=== PATIENT | female | born 1960 | race Caucasian/White ===

== ENCOUNTER → 2019-04-05 11:25 | Outpatient (BNVA) | payer MEDICARE, MEDICAID, SELFPAY | PROVIDERS: Family Provider Family Medicine; PCP Family Medicine; Visit Provider Internal Medicine Rheumatology | DX: M05.79 Rheumatoid arthritis with rheumatoid factor of multiple sites without organ or systems involvement (principal); Z79.899 Other long term (current) drug therapy; R94.5 Abnormal results of liver function studies; K75.81 Nonalcoholic steatohepatitis (NASH); L85.1 Acquired keratosis [keratoderma] palmaris et plantaris | CPT/HCPCS: 36415; 80061; 82565; 84460; 85025; 85651; 86140; 99213 ==

== ENCOUNTER → 2019-04-05 12:23 | Outpatient (BNVA) | payer MEDICARE, MEDICAID, SELFPAY | PROVIDERS: Family Provider Family Medicine; PCP Family Medicine; Visit Provider Internal Medicine Rheumatology | DX: M05.79 Rheumatoid arthritis with rheumatoid factor of multiple sites without organ or systems involvement (principal); Z79.899 Other long term (current) drug therapy; R94.5 Abnormal results of liver function studies; K75.81 Nonalcoholic steatohepatitis (NASH); L85.1 Acquired keratosis [keratoderma] palmaris et plantaris | CPT/HCPCS: 85025 ==

== ENCOUNTER → 2019-12-20 09:36 | Outpatient (BNVA) | payer MEDICARE, MEDICAID, SELFPAY | PROVIDERS: Family Provider Family Medicine; PCP Family Medicine; Referring Provider Family Medicine; Visit Provider Specialist | DX: M17.12 Unilateral primary osteoarthritis, left knee (principal); M25.562 Pain in left knee | CPT/HCPCS: 73560; 73565 ==

== ENCOUNTER 2019-12-31 08:00 | Day surgery (SDC) | payer MEDICARE, MEDICAID, SELFPAY ==
[2019-12-31 11:30] VITALS: BMI 32.9
--- NOTE | 2019-12-31 12:09 | ANES.PREANE2 ---
Pre-Anesthetic Assessment Pre-Anesthetic Assessment: Height/Weight: Height 1.65 m Weight 89.811 kg Preop Diagnosis: Severe degenerative osteoarthritis left knee Proposed Procedure: Operation Date: 01/08/20 10:10 Proposed Procedures p Left Total Knee Arthroplasty 44218 M17.12(Left) - Emmy Schafer MD Familial anesthetic complications: None Social: Social History: No alcohol and No tobacco Exam: Pre-Anes Outpt Exam: alert, oriented x 3, clear to auscultation bilaterally and regular rate & rhythm Airway: Cervical ROM: WNL MP: 4 Dentition: False Additional comments: Very poor mouth opening Hepatic: Comments: ALMEIDA GI: GI: GERD Musc/skel: Musc/skel: RA (Does not affect neck) Comments: 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, s/p resection Neuropsych: Neuropsych: Seizure (s/p brain resection) Anesthetic Plan: ASA status: 3 Anesthesia: General and Regional (specify below) Risk of > 500 ml blood loss (7ml/kg in children): No PFSH Anesthesia PFSH: Medical History (Updated 12/20/19 @ 14:56 by Emmy Schafer MD) History of brain tumor Melanoma metastatic to brain Rheumatoid arthritis Surgical History No pertinent past surgical history Family History Other Arthritis Cancer Diabetes Social History Smoking and tobacco status: never smoked Second hand smoke exposure: No Smoking risk assessment/counseling performed?: Yes Alcohol intake: never Adopted: No Marital status: History of recent travel: No Data Anesthesia Cardiac Studies: No Data to Display
[2019-12-31 12:22] LABS: Basophils # 0.1 10^3/uL (0.0-0.1); Basophils % 0.6 %; Eosinophils # 0.1 10^3/uL (0.0-0.8); Eosinophils % 1.1 %; Hematocrit 46.8 % (37.0-47.0); Hemoglobin 15.6 g/dL (11.5-15.3); Lymphocytes # 1.2 10^3/uL (0.8-4.8); Lymphocytes % 14.9 %; Mean Corpuscular HGB Conc 33.3 g/dL (30.0-36.0); Mean Corpuscular Hemoglobin 33.2 pg (28.0-34.0); Mean Corpuscular Volume 99.6 fL (81-99); Mean Platelet Volume 10.7 fL (7.4-10.4); Monocytes # 0.5 10^3/uL (0.2-0.9); Monocytes % 5.9 %; Neutrophils % 77.1 %; Nucleated Red Blood Cells % 0 %; Platelet Count 338 10^3/cmm (130-400); Red Cell Distribution Width 12.2 % (12.1-15.1); White Blood Count 8.3 10^3/uL (4.0-10.0)
[2019-12-31 12:45] LABS: Alanine Aminotransferase 102 U/L (0-33); Albumin Level 4.3 g/dL (3.5-5.2); Alkaline Phosphatase 97 IU/L (35-105); Blood Urea Nitrogen 15 mg/dL (8-23); Calcium 10.2 mg/dL (8.5-10.5); Carbon Dioxide 23 mmol/L (22-29); Chloride 99 mmol/L (98-107); Globulin 3.1 g/dL (1.3-4.6); Glomerular Filtration Rate 73.2 mL/min (90-130); Glucose 387 mg/dL (65-115); Osmolality Calculated 293 mOsm/kg (285-295); Sodium 133 mmol/L (136-145); Total Bilirubin 0.8 mg/dL (0.15-1.2); Total Protein 7.4 g/dL (6.6-8.7)
[2019-12-31 12:50] LABS: Anion Gap 15.6 (5-19); Aspartate Amino Transferase 118 U/L (0-32); Potassium 4.6 mmol/L (3.5-5.1)
[2019-12-31 12:57] LABS: Glucose Urine UA 4+ (Normal); Ketones Urine 1+ (Negative); Protein Urine Neg (Negative); Specific Gravity, Urine 1.015 (1.005-1.030); Urine Appearance SL Hazy (CLEAR); Urine Color Yellow (Yellow); pH Urine 5 (5-7)
[2019-12-31 12:58] LABS: Add Urine Microscopic? YES; Bilirubin Urine Neg (Negative); Blood Urine Neg (Negative); Leukocyte Esterase Urine Trace (Negative); Nitrate Urine Positive (Negative); Urobilinogen Urine 1 mg/dL (Negative)
[2019-12-31 13:07] LABS: RBC Urine 0-4 /hpf (0-2); Squamous Epithelial Cell Urine 0-4 /hpf (0-5); WBC Urine 15-25 /hpf (0-5)
[2019-12-31 13:08] LABS: Add Urine Culture? Yes; Bacteria Urine 3+ /hpf; Mucus Urine TRACE /hpf
== END 2019-12-31 13:00 | disposition home or self-care (01) ==
LOC: OPS 10-28 10:59
PROVIDERS: PCP Family Medicine; Visit Provider Specialist
DX: Z01.818 Encounter for other preprocedural examination (principal); M17.12 Unilateral primary osteoarthritis, left knee; K21.9 Gastro-esophageal reflux disease without esophagitis; M06.9 Rheumatoid arthritis, unspecified
CPT/HCPCS: 80053; 81001; 85025; 87077; 87086; 87186; 87641; J1100; J2250; J2405; J2704; J2710; J3010; J3490

== ENCOUNTER → 2020-01-03 10:37 | Outpatient (BNVA) | payer MEDICARE, MEDICAID, SELFPAY | PROVIDERS: PCP Family Medicine; Visit Provider Specialist | DX: Z11.59 Encounter for screening for other viral diseases (principal); M17.12 Unilateral primary osteoarthritis, left knee | CPT/HCPCS: 87635 ==

== ENCOUNTER → 2020-05-27 13:31 | Outpatient (BNVA) | payer MEDICARE, MEDICAID, SELFPAY | PROVIDERS: PCP Family Medicine; Visit Provider Internal Medicine Rheumatology | DX: M05.79 Rheumatoid arthritis with rheumatoid factor of multiple sites without organ or systems involvement (principal); K75.81 Nonalcoholic steatohepatitis (NASH); Z79.899 Other long term (current) drug therapy; Z85.820 Personal history of malignant melanoma of skin | CPT/HCPCS: 99214 ==

== ENCOUNTER 2020-05-27 14:45 | Outpatient (CLI) | payer MEDICARE, MEDICAID, SELFPAY ==
--- NOTE | 2020-05-27 15:04 | XRR_ITS ---
PROCEDURE INFORMATION: Exam: XR Chest Exam date and time: 05/27/2020 3:04 PM Age: 60 years old Clinical indication: Screening exam; Other screening; Patient HX: Pre medication cxr; Additional info: R09.89 - other specified symptoms and signs involving the circulatory and respiratory systems TECHNIQUE: Imaging protocol: XR of the chest Views: 2 views. COMPARISON: CR Chest 2 views* [id number] 03/24/2018 1:22 PM FINDINGS: Lungs: Unremarkable. No consolidation. Pleural spaces: No pleural effusion. No pneumothorax. Heart/Mediastinum: No interval change, prominent epicardial fat pad. No cardiomegaly. Bones/joints: No acute findings. XR/XR chest 2V* [id number] IMPRESSION: No acute findings.
== END 2020-05-27 14:46 | disposition home or self-care (01) ==
PROVIDERS: PCP Family Medicine; Visit Provider Internal Medicine Rheumatology
DX: R09.89 Other specified symptoms and signs involving the circulatory and respiratory systems (principal)
CPT/HCPCS: 71046

== ENCOUNTER → 2021-02-10 09:17 | Outpatient (BNVA) | payer MEDICARE, MEDICAID, SELFPAY | PROVIDERS: PCP Family Medicine; Visit Provider Podiatrist Foot & Ankle Surgery | DX: L97.512 Non-pressure chronic ulcer of other part of right foot with fat layer exposed (principal); L98.8 Other specified disorders of the skin and subcutaneous tissue; M05.79 Rheumatoid arthritis with rheumatoid factor of multiple sites without organ or systems involvement; M21.611 Bunion of right foot; M21.612 Bunion of left foot; M20.41 Other hammer toe(s) (acquired), right foot; L97.513 Non-pressure chronic ulcer of other part of right foot with necrosis of muscle; M77.42 Metatarsalgia, left foot; M77.41 Metatarsalgia, right foot; M21.622 Bunionette of left foot; M21.621 Bunionette of right foot; M20.42 Other hammer toe(s) (acquired), left foot | CPT/HCPCS: 73630; 87070; 87075; 87077; 87186; 87205 ==

== ENCOUNTER → 2021-06-17 14:59 | Outpatient (BNVA) | payer MEDICARE, MEDICAID, SELFPAY | PROVIDERS: PCP Family Medicine; Visit Provider Podiatrist Foot & Ankle Surgery | DX: M05.79 Rheumatoid arthritis with rheumatoid factor of multiple sites without organ or systems involvement (principal); Z79.899 Other long term (current) drug therapy; G62.9 Polyneuropathy, unspecified; M77.42 Metatarsalgia, left foot; M77.41 Metatarsalgia, right foot; M21.622 Bunionette of left foot; M21.621 Bunionette of right foot; M20.42 Other hammer toe(s) (acquired), left foot; M20.41 Other hammer toe(s) (acquired), right foot; M21.612 Bunion of left foot; M21.611 Bunion of right foot | CPT/HCPCS: 80076; 82565; 85025; 86140; 99213; 99214 ==

== ENCOUNTER → 2021-07-15 14:16 | Outpatient (BNVA) | payer MEDICARE, MEDICAID, SELFPAY | PROVIDERS: PCP Family Medicine; Visit Provider Internal Medicine Rheumatology | DX: M05.79 Rheumatoid arthritis with rheumatoid factor of multiple sites without organ or systems involvement (principal); Z79.899 Other long term (current) drug therapy; K75.81 Nonalcoholic steatohepatitis (NASH); Z85.820 Personal history of malignant melanoma of skin; Z71.89 Other specified counseling | CPT/HCPCS: 99214 ==

== ENCOUNTER → 2021-08-12 12:36 | Outpatient (BNVA) | payer MEDICARE, MEDICAID, SELFPAY | PROVIDERS: PCP Family Medicine; Visit Provider Podiatrist Foot & Ankle Surgery | DX: M79.671 Pain in right foot (principal); M79.672 Pain in left foot; M05.79 Rheumatoid arthritis with rheumatoid factor of multiple sites without organ or systems involvement; M21.611 Bunion of right foot; M21.612 Bunion of left foot; M20.41 Other hammer toe(s) (acquired), right foot; M20.42 Other hammer toe(s) (acquired), left foot; M21.621 Bunionette of right foot; M21.622 Bunionette of left foot; M77.41 Metatarsalgia, right foot; M77.42 Metatarsalgia, left foot; G62.9 Polyneuropathy, unspecified | CPT/HCPCS: 99213; 99214 ==

== ENCOUNTER → 2021-09-23 10:10 | Outpatient (BNVA) | payer MEDICARE, MEDICAID, SELFPAY | PROVIDERS: PCP Family Medicine; Visit Provider Podiatrist Foot & Ankle Surgery | DX: M05.79 Rheumatoid arthritis with rheumatoid factor of multiple sites without organ or systems involvement (principal); M20.41 Other hammer toe(s) (acquired), right foot; M20.42 Other hammer toe(s) (acquired), left foot; M21.611 Bunion of right foot; M21.612 Bunion of left foot; M21.621 Bunionette of right foot; M21.622 Bunionette of left foot; M77.41 Metatarsalgia, right foot; M77.42 Metatarsalgia, left foot; M79.672 Pain in left foot; M79.671 Pain in right foot; G62.9 Polyneuropathy, unspecified | CPT/HCPCS: 99214 ==

== ENCOUNTER → 2021-12-23 10:07 | Outpatient (BNVA) | payer MEDICARE, MEDICAID, SELFPAY | PROVIDERS: PCP Family Medicine; Visit Provider Podiatrist Foot & Ankle Surgery | DX: M05.79 Rheumatoid arthritis with rheumatoid factor of multiple sites without organ or systems involvement (principal); M21.611 Bunion of right foot; M21.612 Bunion of left foot; M20.41 Other hammer toe(s) (acquired), right foot; M20.42 Other hammer toe(s) (acquired), left foot; M21.621 Bunionette of right foot; M21.622 Bunionette of left foot; M77.41 Metatarsalgia, right foot; M77.42 Metatarsalgia, left foot; G62.9 Polyneuropathy, unspecified | CPT/HCPCS: 99213 ==

== ENCOUNTER → 2022-01-13 13:49 | Outpatient (BNVA) | payer MEDICARE, MEDICAID, SELFPAY | PROVIDERS: PCP Family Medicine; Visit Provider Internal Medicine Rheumatology | DX: M05.79 Rheumatoid arthritis with rheumatoid factor of multiple sites without organ or systems involvement (principal); Z79.899 Other long term (current) drug therapy; Z71.89 Other specified counseling; K75.81 Nonalcoholic steatohepatitis (NASH); Z85.820 Personal history of malignant melanoma of skin; Z85.841 Personal history of malignant neoplasm of brain; Z92.3 Personal history of irradiation | CPT/HCPCS: 80076; 82565; 85025; 86140; 99214 ==

== ENCOUNTER → 2022-03-03 15:01 | Outpatient (BNVA) | payer MEDICARE, MEDICAID, SELFPAY | PROVIDERS: PCP Family Medicine; Visit Provider Podiatrist Foot & Ankle Surgery | DX: M05.59 Rheumatoid polyneuropathy with rheumatoid arthritis of multiple sites (principal); L84 Corns and callosities; L97.512 Non-pressure chronic ulcer of other part of right foot with fat layer exposed; M21.611 Bunion of right foot; M21.612 Bunion of left foot; M20.41 Other hammer toe(s) (acquired), right foot; M20.42 Other hammer toe(s) (acquired), left foot; M21.621 Bunionette of right foot; M21.622 Bunionette of left foot; M77.41 Metatarsalgia, right foot; M77.42 Metatarsalgia, left foot; M79.671 Pain in right foot; M79.672 Pain in left foot | CPT/HCPCS: 11042; 11056 ==

== ENCOUNTER → 2022-04-28 11:11 | Outpatient (BNVA) | payer MEDICARE, MEDICAID, SELFPAY | PROVIDERS: PCP Family Medicine; Visit Provider Podiatrist Foot & Ankle Surgery | DX: M05.79 Rheumatoid arthritis with rheumatoid factor of multiple sites without organ or systems involvement (principal); M21.611 Bunion of right foot; M21.612 Bunion of left foot; M20.41 Other hammer toe(s) (acquired), right foot; M20.42 Other hammer toe(s) (acquired), left foot; M21.621 Bunionette of right foot; M21.622 Bunionette of left foot; M77.41 Metatarsalgia, right foot; M77.42 Metatarsalgia, left foot; G62.9 Polyneuropathy, unspecified | CPT/HCPCS: 99213 ==

== ENCOUNTER → 2022-05-19 13:00 | Outpatient (BNVA) | payer MEDICARE, MEDICAID, SELFPAY | PROVIDERS: PCP Family Medicine; Visit Provider Internal Medicine Rheumatology | DX: M05.79 Rheumatoid arthritis with rheumatoid factor of multiple sites without organ or systems involvement (principal); Z79.899 Other long term (current) drug therapy; Z71.89 Other specified counseling | CPT/HCPCS: 36415; 80076; 82565; 85025; 86140; 99214 ==

== ENCOUNTER → 2022-06-09 11:14 | Outpatient (BNVA) | payer MEDICARE, MEDICAID, SELFPAY | PROVIDERS: PCP Family Medicine; Visit Provider Podiatrist Foot & Ankle Surgery | DX: M05.79 Rheumatoid arthritis with rheumatoid factor of multiple sites without organ or systems involvement (principal); M21.611 Bunion of right foot; M21.612 Bunion of left foot; M20.41 Other hammer toe(s) (acquired), right foot; M20.42 Other hammer toe(s) (acquired), left foot; M21.621 Bunionette of right foot; M21.622 Bunionette of left foot; M77.41 Metatarsalgia, right foot; M77.42 Metatarsalgia, left foot; G62.9 Polyneuropathy, unspecified | CPT/HCPCS: 99213 ==

== ENCOUNTER → 2022-07-07 11:29 | Outpatient (BNVA) | payer MEDICARE, MEDICAID, SELFPAY | PROVIDERS: PCP Family Medicine; Visit Provider Podiatrist Foot & Ankle Surgery | DX: I73.9 Peripheral vascular disease, unspecified (principal); M21.611 Bunion of right foot; M21.612 Bunion of left foot; M20.41 Other hammer toe(s) (acquired), right foot; M20.42 Other hammer toe(s) (acquired), left foot; M21.621 Bunionette of right foot; M21.622 Bunionette of left foot; M77.41 Metatarsalgia, right foot; M77.42 Metatarsalgia, left foot; G62.9 Polyneuropathy, unspecified; L60.3 Nail dystrophy; L84 Corns and callosities; Z79.899 Other long term (current) drug therapy; M05.79 Rheumatoid arthritis with rheumatoid factor of multiple sites without organ or systems involvement | CPT/HCPCS: 11056; 11721 ==

== ENCOUNTER → 2022-08-12 11:33 | Outpatient (BNVA) | payer MEDICARE, MEDICAID, SELFPAY | PROVIDERS: PCP Family Medicine; Visit Provider Podiatrist Foot & Ankle Surgery | DX: I73.9 Peripheral vascular disease, unspecified (principal); L84 Corns and callosities; L97.512 Non-pressure chronic ulcer of other part of right foot with fat layer exposed; Z79.899 Other long term (current) drug therapy; G62.9 Polyneuropathy, unspecified; M77.42 Metatarsalgia, left foot; M77.41 Metatarsalgia, right foot; M21.622 Bunionette of left foot; M21.621 Bunionette of right foot; M20.42 Other hammer toe(s) (acquired), left foot; M20.41 Other hammer toe(s) (acquired), right foot; M21.612 Bunion of left foot; M21.611 Bunion of right foot; M05.79 Rheumatoid arthritis with rheumatoid factor of multiple sites without organ or systems involvement | CPT/HCPCS: 11042; 11056 ==

== ENCOUNTER → 2022-09-16 11:15 | Outpatient (BNVA) | payer MEDICARE, MEDICAID, SELFPAY | PROVIDERS: PCP Family Medicine; Visit Provider Podiatrist Foot & Ankle Surgery | DX: I73.9 Peripheral vascular disease, unspecified (principal); L84 Corns and callosities; M05.79 Rheumatoid arthritis with rheumatoid factor of multiple sites without organ or systems involvement; M21.611 Bunion of right foot; M21.612 Bunion of left foot; M20.41 Other hammer toe(s) (acquired), right foot; M20.42 Other hammer toe(s) (acquired), left foot; M21.621 Bunionette of right foot; M21.622 Bunionette of left foot; M77.41 Metatarsalgia, right foot; M77.42 Metatarsalgia, left foot; G62.9 Polyneuropathy, unspecified; Z79.899 Other long term (current) drug therapy | CPT/HCPCS: 11056; 99213 ==

== ENCOUNTER → 2022-11-04 07:21 | Outpatient (BNVA) | payer MEDICARE, MEDICAID, SELFPAY | PROVIDERS: PCP Family Medicine; Visit Provider Podiatrist Foot & Ankle Surgery | DX: M05.79 Rheumatoid arthritis with rheumatoid factor of multiple sites without organ or systems involvement (principal); M21.611 Bunion of right foot; M21.612 Bunion of left foot; M20.41 Other hammer toe(s) (acquired), right foot; M20.42 Other hammer toe(s) (acquired), left foot; M21.621 Bunionette of right foot; M21.622 Bunionette of left foot; M77.41 Metatarsalgia, right foot; M77.42 Metatarsalgia, left foot; G62.9 Polyneuropathy, unspecified; L84 Corns and callosities; Z79.899 Other long term (current) drug therapy; I73.9 Peripheral vascular disease, unspecified | CPT/HCPCS: 11056; 99213 ==

== ENCOUNTER → 2022-12-29 14:59 | Outpatient (BNVA) | payer MEDICARE, MEDICAID, SELFPAY | PROVIDERS: PCP Family Medicine; Visit Provider Podiatrist Foot & Ankle Surgery | DX: M05.79 Rheumatoid arthritis with rheumatoid factor of multiple sites without organ or systems involvement (principal); M21.611 Bunion of right foot; M21.612 Bunion of left foot; M20.41 Other hammer toe(s) (acquired), right foot; M20.42 Other hammer toe(s) (acquired), left foot; M21.621 Bunionette of right foot; M21.622 Bunionette of left foot; M77.41 Metatarsalgia, right foot; M77.42 Metatarsalgia, left foot; L84 Corns and callosities; Z79.899 Other long term (current) drug therapy; I73.9 Peripheral vascular disease, unspecified; G62.89 Other specified polyneuropathies | CPT/HCPCS: 11056 ==

== ENCOUNTER → 2023-03-02 10:50 | Outpatient (BNVA) | payer MEDICARE, MEDICAID, SELFPAY | PROVIDERS: PCP Family Medicine; Visit Provider Podiatrist Foot & Ankle Surgery | DX: M05.79 Rheumatoid arthritis with rheumatoid factor of multiple sites without organ or systems involvement (principal); M21.611 Bunion of right foot; M21.612 Bunion of left foot; M20.41 Other hammer toe(s) (acquired), right foot; M20.42 Other hammer toe(s) (acquired), left foot; M21.621 Bunionette of right foot; M21.622 Bunionette of left foot; M77.41 Metatarsalgia, right foot; M77.42 Metatarsalgia, left foot; G62.9 Polyneuropathy, unspecified; L84 Corns and callosities; Z79.899 Other long term (current) drug therapy; I73.9 Peripheral vascular disease, unspecified | CPT/HCPCS: 11056 ==

== ENCOUNTER → 2023-03-09 10:08 | Outpatient (BNVA) | payer MEDICARE, MEDICAID, SELFPAY | PROVIDERS: PCP Family Medicine; Visit Provider Internal Medicine Rheumatology | DX: Z79.899 Other long term (current) drug therapy (principal); M05.79 Rheumatoid arthritis with rheumatoid factor of multiple sites without organ or systems involvement; Z11.1 Encounter for screening for respiratory tuberculosis; Z71.89 Other specified counseling | CPT/HCPCS: 36415; 80076; 82565; 85025; 86140; 86480; 99214 ==

== ENCOUNTER 2023-03-26 11:50 | Inpatient (IN) | payer MEDICARE, MEDICAID, SELFPAY ==
[2023-03-26] VITALS (44 sets, daily range): BP systolic 98–179; BP diastolic 59–111; PULSE 61–86; RESP 13–23; TEMP 37–38.2; O2SAT 88–98; BMI 25.6
--- NOTE | 2023-03-26 12:17 | CTR_ITS ---
PROCEDURE INFORMATION: Exam: CT Head Without Contrast Exam date and time: 03/26/2023 1:16 PM Age: 63 years old Clinical indication: Altered mental status/memory loss; Prior surgery; Surgery date: 6+ months; Surgery type: Brain; Additional info: Ams/fall TECHNIQUE: Imaging protocol: Computed tomography of the head without contrast. Radiation optimization: All CT scans at this facility use at least one of these dose optimization techniques: automated exposure control; mA and/or kV adjustment per patient size (includes targeted exams where dose is matched to clinical indication); or iterative reconstruction. COMPARISON: CT head wo/w con [id number] 10/21/2012 6:47 PM RADIATION DOSE METRICS: Total DLP (mGy-cm): 844.48 FINDINGS: Brain: A 5 mm x 2 mm focus of high density in the right skip was not present previously. This may be benign calcification that has developed in the interval due to an old injury or inflammation/infection. However, this could be a focus of acute or subacute hemorrhage. No other findings suspicious for intracranial hemorrhage. No mass effect or acute infarct. Unchanged moderate, diffuse atrophy of the brain.There is ill-defined, fairly symmetric low-density within the cerebral deep white matter bilaterally which is likely the sequela of chronic ischemic change due to small vessel disease. Unchanged. Otherwise, unremarkable. Cerebral ventricles: No ventriculomegaly. Paranasal sinuses: New mild left maxillary sinusitis. Otherwise, unremarkable. Mastoid air cells: New bilateral mastoiditis. Clear middle ear cavities Bones/joints: Unchanged left posterior craniectomy. Innumerable new small lytic lesions scattered throughout the bones. This could be metastatic disease. This could be a myelodysplastic disorder such as multiple myeloma. This could be due to a metabolic disorder involving serum calcium and/or phosphate levels. Soft tissues: Otherwise, unremarkable. CT/CT head wo con* [id number] IMPRESSION: 1. New 5 mm x 2 mm high density focus in the right skip could be an acute or subacute hemorrhage, or could be benign calcification due to old trauma or inflammation/infection. 2. No other acute intracranial findings. 3. Unchanged moderate atrophy of the brain with chronic ischemic changes bilaterally. 4. Multiple new lytic lesions throughout the bones could be metastatic disease, a myelodysplastic disorder such as multiple myeloma, or due to a metabolic disorder affecting serum calcium and/or phosphate levels. 5. Additional details as above.
--- NOTE | 2023-03-26 12:18 | ECG_ITS ---
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 Measurements Intervals [place] Rate: 91 P: 37 WV: 141 QRS: -68 QRSD: 73 T: 52 QT: 355 QTc: 437 Interpretive Statements SINUS RHYTHM LEFT AXIS DEVIATION [QRS AXIS < -30] PATTERN CONSISTENT WITH PULMONARY DISEASE POSSIBLE RIGHT VENTRICULAR CONDUCTION DELAY [RSR (QR) IN V1/V2] SEPTAL MYOCARDIAL INFARCTION , OF INDETERMINATE AGE [40+ ms Q WAVE IN V1/V2] Compared to ECG 08/26/2015 04:42:01 Left-axis deviation now present Myocardial infarct finding now present T-wave abnormality no longer present Possible ischemia no longer present Electronically Signed On 03-27-2023 8:28:14 ADJUNCT TEACHER by Salvatore Saenz M.D. [id number]
--- NOTE | 2023-03-26 12:27 | ED_ITS ---
HPI - Altered Mental Status 2 General: Chief Complaint: Altered Mental Status Stated Complaint: AMS Time Seen by Provider: 03/26/23 12:02 History of Present Illness: 63-year-old female presents to the emerg ency department via EMS personnel. Patient lives by herself and is accompanied by her daughter. The daughter states she was last known well approximately 4 days ago. The daughter states that she attempted to call her yesterday but did not receive a return call and that is not out of the ordinary for the patient. Daughter states the neighbor went to check on her today and found her sitting in a chair but was acting confused and there was an overturned table and lamp. The patient does smell malodorous and smells of very strong urine. Per the daughter the patient does have a history of urinary tract infections and had previously been confused when she had urinary tract infections. The daughter states the patient also had a brain mass that received radiation therapy and had a craniotomy with poor bone fusion post surgical intervention and has a soft spot to the right occipital region. The family states that they do not believe that she has fallen, but did note that there was an overturned table and lamp in the area where the pt was found sitting. She does have a history of seizure activity after having a brain mass removed and is currently prescribed Keppra, but it is unsure if she has taken it as scheduled over the pervious 4 days. She also has a history of rheumatoid arthritis. The patient does appear to be very confused but is awake and alert to person only Review of Systems 2 General: Reports: ROS unobtainable due to medical condition and ROS unobtainable due to mental status PFS ED 2 PFSH: Medical History High risk medication use Immunization counseling Melanoma metastatic to brain History of brain tumor Rheumatoid arthritis Surgical History No pertinent past surgical history Family History Other Arthritis Cancer Diabetes Social History Smoking and tobacco/nicotine status: never used tobacco/nicotine Second hand smoke exposure: No Alcohol intake: never Substance/Drug Use: never Adopted: No Marital status: Physical Exam 2 Narrative: Constitutional: the patient appears well nourished and with normal development. Vital signs reviewed as documented. GCS 10. Confused. HENMT: area to the right occipital region that is soft to palpation due to previous failure of a bone flap reimplantation, atraumatic. External ears normal appearance without drainage. Nose without drainage, normal appearance. Mucus membranes moist. Neck is supple, No jugular venous distension, trachea is midline, no appreciable carotid bruits. No lymphadenopathy. No meningeal signs. Flexion, extension and lateral rotation is without pain. Eyes: Pupils are equal, round, reactive to light and accommodation. No scleral icterus. Extra-ocular movement are intact. Thorax is symmetrical and with equal rise and fall with respirations. Resp: Lungs are clear to auscultation. No wheezes, rales, crackles or ronchi at present. Cardio: Regular rate and rhythm. Positive S1, S2. No appreciable murmurs, rubs or gallops. GI: Abdominal exam reveals normal bowel sounds to all quadrants. No organomegaly. No obvious palpable masses noted. No hepatomegally appreciated. Soft, non-tender to palpation. Extremity: Extremities are non-edematous and both femoral and pedal pulses are 2+ and equal bilaterally. Moves all extremities well, sensation in all extremities. Bilateral ulnar deviation and contraction to the hand secondary to longstanding rheumatoid arthritis. Neuro: Alert and oriented x 1, person. Decerebrate posturing noted, this maybe underlying seizure activity. I am unable to perform a NIH scale as the patient is unable to respond or follow commands. Motor strength in the upper and lower extremities are equal and bilateral 5/5. Confused mental status. Psych: Cooperative, calm. Skin: No lesions, rashes. No gross abnormalities noted. Back: Symmetrical, no obvious deformity, No CVA tenderness Course 2 ED course: Charlie Coma Scale/Score (GCS) on 03/26/2023 RESULT SUMMARY: 10 points Charlie Coma Score E(3) V(3) M(4) Holderness Coma Scale INPUTS: Best eye response ?> 3 = To verbal command (+3) Best verbal response ?> 3 = Inappropriate words (+3) Best motor response ?> 4 = Withdrawal from pain (+4) I had an extensive discussion with the daughter Sunita and the patient's granddaughter Polly and described the patient's condition as well as her CT scan findings and they conveyed to me that the patient would not want life- saving surgical intervention for any new development regarding intracranial bleeding. They requested that the patient would want to be made a DO NOT RESUSCITATE and I will honor that and have placed that order on her chart. I did advise that we would continue to treat the patient's urinary tract infection and would contact the hospital physician for possible admission here to this hospital. I spoke with Dr. Bedolla and at present he has denied admission to the hospital and requested transfer stating that we would not be able to get an EEG if the patient is having underlying seizure activity. 14: 30 PM we have contacted [facility] and have been advised that they would return our call. We are currently awaiting return call for acceptance. I also contacted [facility] and did speak with neurology/neurosurgery and after extensive discussion presentation the patient's case was advised that the patient would not be a candidate for any type of surgical intervention and that the patient could be treated by the medicine physician. After speaking to the physician at [facility] I did contact Dr. Bedolla again to discuss the recommendations from the physician at [facility] and Dr. Bedolla stated that he would accept the patient here to the hospital in the intensive care unit for additional evaluation treatment and care. I advised the family members of this information and they were very pleased and agreeable and stated that admission and treatment here was their preference. They verbalized understanding that if the patient's symptoms worsened that she may need emergently transferred from the intensive care unit or medical floor to another facility for higher level of care and they verbalized understanding and acceptance of this information. Reevaluation(s): Reevaluation #1: Reevaluation of the patient after completion of her Keppra infusion demonstrates an approved mentation. She is no longer having shaking or posturing type movements. The hospitalist is at bedside and she is responding appropriately to his questions. Time: 16:00 Vital Signs: Vital signs: Vital Signs Temperature 98.6 F 03/26/23 12:08 Pulse Rate 65 03/26/23 16:30 Respiratory Rate 18 03/26/23 16:30 Blood Pressure 165/91 03/26/23 16:30 Pulse Oximetry 96 03/26/23 16:30 Oxygen Delivery Me thod Room Air 03/26/23 14:19 MDM - Altered Mental Status Medical Decision Making Physical exam completed and documented I will obtain a CT scan given the patient's altered mental status as well as urinalysis CBC CMP PT PTT INR and blood cultures I will provide her IV fluid rehydration. As well as IV antibiotics for her urinary tract infection and I will provide her a loading dose of Keppra as we are unsure if she has been taking her Keppra for her previous seizures post craniotomy. I will contact the hospitalist for admission. Medical Records I reviewed the patient's medical records. Lab Data I reviewed the patient's lab results. 03/26/23 12:44 03/26/23 12:[address] 03/26/23 12:17 IMPRESSION: 1. New 5 mm x 2 mm high density focus in the right skip could be an acute or subacute hemorrhage, or could be benign calcification due to old trauma or inflammation/infection. 2. No other acute intracranial findings. 3. Unchanged moderate atrophy of the brain with chronic ischemic changes bilaterally. 4. Multiple new lytic lesions throughout the bones could be metastatic disease, a myelodysplastic disorder such as multiple myeloma, or due to a metabolic disorder affecting serum calcium and/or phosphate levels. 5. Additional details as above. ADDENDUM: 03/26/23 1356 ADDENDUM: THIS REPORT CONTAINS FINDINGS THAT MAY BE CRITICAL TO PATIENT CARE. The findings were verbally communicated via telephone conference with ENOC KIM at 1:54 PM PELLET MACHINE OPERATOR on 03/26/2023. The findings were acknowledged and understood. Laboratory Results WBC 9.15 10^3/uL (3.29-11.43) 03/26/23 12:44 RBC 4.63 10^6/uL (3.85-5.65) 03/26/23 12:44 Hgb 15.10 g/dL (11.27-16.99) 03/26/23 12:44 Hct 43.9 % (36-47) 03/26/23 12:44 MCV 94.8 fl (85-98) 03/26/23 12:44 MCH 32.6 pg (27-33) 03/26/23 12:44 MCHC 34.4 g/dL (30-55) 03/26/23 12:44 RDW 11.9 % (12.1-15.1) L 03/26/23 12:44 Plt Count 237 10^3/cmm (157-399) 03/26/23 12:44 MPV 11.2 fL (7.4-10.4) H 03/26/23 12:44 Neut % (Auto) 76.8 % 03/26/23 12:44 Lymph % (Auto) 16.0 % 03/26/23 12:44 Haines % (Auto) 6.3 % 03/26/23 12:44 Eos % (Auto) 0.0 % 03/26/23 12:44 Baso % (Auto) 0.4 % 03/26/23 12:44 Neut # (Auto) 7.02 10^3/uL (1.8-7.7) 03/26/23 12:44 Lymph # (Auto) 1.5 10^3/uL (0.8-4.8) 03/26/23 12:44 Haines # (Auto) 0.6 10^3/uL (0.2-0.9) 03/26/23 12:44 Eos # (Auto) 0.0 10^3/uL (0.0-0.8) 03/26/23 12:44 Baso # (Auto) 0.0 10^3/uL (0.0-0.1) 03/26/23 12:44 Nucleated RBC % (auto) 0 % 03/26/23 12:44 Nucleated RBCs # 0.0 /100WBC 03/26/23 12:44 Sodium 132 mmol/L (136-145) L 03/26/23 12:44 Potassium 4.8 mmol/L (3.5-5.1) 03/26/23 12:44 Chloride 98 mmol/L (98-107) 03/26/23 12:44 Carbon Dioxide 19 mmol/L (22-29) L 03/26/23 12:44 Anion Gap 19.8 (5-19) H 03/26/23 12:44 BUN 15 mg/dL (8-23) 03/26/23 12:44 Creatinine 0.5 mg/dL (0.5-0.9) 03/26/23 12:44 GFR Calculation 124.2 mL/min (90-130) 03/26/23 12:44 Glucose 263 mg/dL (65-115) H 03/26/23 12:44 Calculated Osmolality 284 mOsm/kg (285-295) L 03/26/23 12:44 Lactic Acid 2.9 mmol/L (0.5-2.2) H 03/26/23 12:44 Calcium 9.3 mg/dL (8.5-10.5) 03/26/23 12:44 Total Bilirubin 1.0 mg/dL (0.15-1.2) 03/26/23 12:44 AST 66 U/L (0-32) H 03/26/23 12:44 ALT 51 U/L (0-33) H 03/26/23 12:44 Alkaline Phosphatase 85 U/L (35-105) 03/26/23 12:44 Troponin T Baseline 16 ng/L (0-10) H 03/26/23 12:44 Troponin T 120 Minute 15.93 ng/L (0-10) H 03/26/23 14:51 Delta Troponin T -0.07 ABS# (0-10) L 03/26/23 14:51 NT-Pro-B Natriuret Pep 566 pg/mL (0-125) H 03/26/23 12:44 Total Protein 6.9 g/dL (6.6-8.7) 03/26/23 12:44 Albumin 4.0 g/dL (3.5-5.2) 03/26/23 12:44 Globulin 2.9 g/dL (1.3-4.6) 03/26/23 12:44 Procalcitonin 0.13 ng/mL (0-0.5) 03/26/23 12:44 Urine Color Yellow (Yellow) 03/26/23 12:58 Urine Appearance Cloudy (CLEAR) A 03/26/23 12:58 Urine pH 7 (5-7) 03/26/23 12:58 Ur Specific [place] 1.015 (1.005-1.030) 03/26/23 12:58 Urine Protein Trace (Negative) 03/26/23 12:58 Urine Glucose (UA) 4+ (Normal) H 03/26/23 12:58 Urine Ketones 1+ (Negative) H 03/26/23 12:58 Urine Blood 2+ (Negative) H 03/26/23 12:58 Urine Nitrate Negative (Negative) 03/26/23 12:58 Urine Bilirubin Neg (Negative) 03/26/23 12:58 Urine Urobilinogen 4 mg/dL (Negative) H 03/26/23 12:58 Ur Leukocyte Esterase Trace (Negative) H 03/26/23 12:58 Urine RBC 5-10 /hpf (0-2) H 03/26/23 12:58 Urine WBC 15-25 /hpf (0-5) H 03/26/23 12:58 Ur Squamous Epith Cells 0-4 /hpf (0-5) H 03/26/23 12:58 Amorphous Sediment Not Reportable 03/26/23 12:58 Urine Bacteria 4+ /hpf (NONE) H 03/26/23 12:58 All radiology interpretation(s) finalized by discharge EKG Data EKG 1: Interpretation: Twelve-lead EKG obtained at 1243 and reviewed at 1245 demonstrates sinus rhythm with a ventricular rate of 91 bpm, SD interval 141, QRS duration 73, QT 355 QTc 4 3, there is no ST elevation or depression at present to demonstrate acute ischemia or infarction. EKG 2: Interpretation: Twelve-lead EKG obtained at 1426 and reviewed at 1427 demonstrates sinus rhythm with a ventricular rate of 70 bpm, SD interval 131, QRS duration 80, QT 355, QTc 377, there is no ST elevation or depression to demonstrate acute ischemia or infarction at present. Critical Care Time 2 Critical Care Time: Critical Care Time: Yes Total Critical Care Time: 70 Attestation: The patients was emergently evaluated as this patient's presentation and case had a high probability of a clinically significant, sudden, or life threatening deterioration of this patient's initial critical presentation or condition which required my full and direct attention, intervention and personal management. Discharge Plan Discharge Patient Disposition: Xfer Short-Term Hosp Clinical Impression: Cerebrovascular accident of right pontine structure, Acute alteration in mental status, Urinary tract infection, Encephalopathy acute Condition: Stable Coding Level of Care Code ED Fur Clipper for Keke Hinton
[2023-03-26 13:15] LABS: Basophils % 0.4 %; Hematocrit 43.9 % (36-47); Lymphocytes # 1.5 10^3/uL (0.8-4.8); Mean Corpuscular HGB Conc 34.4 g/dL (30-55); Mean Corpuscular Hemoglobin 32.6 pg (27-33); Mean Corpuscular Volume 94.8 fl (85-98); Mean Platelet Volume 11.2 fL (7.4-10.4); Monocytes # 0.6 10^3/uL (0.2-0.9); Monocytes % 6.3 %; Neutrophils # 7.02 10^3/uL (1.8-7.7); Neutrophils % 76.8 %; Nucleated Red Blood Cells % 0 %; Platelet Count 237 10^3/cmm (157-399); Red Blood Count 4.63 10^6/uL (3.85-5.65); Red Cell Distribution Width 11.9 % (12.1-15.1); White Blood Count 9.15 10^3/uL (3.29-11.43)
[2023-03-26 13:23] LABS: Lactic Sepsis W/Reflex 2.9 mmol/L (0.5-2.2)
[2023-03-26 13:24] LABS: Troponin(5th) Baseline 16 ng/L (0-10)
[2023-03-26 13:34] LABS: NT Pro B Type Natriuretic Pept 566 pg/mL (0-125); Procalcitonin 0.13 ng/mL (0-0.5)
[2023-03-26 13:45] LABS: Alanine Aminotransferase 51 U/L (0-33); Alkaline Phosphatase 85 U/L (35-105); Blood Urea Nitrogen 15 mg/dL (8-23); Calcium 9.3 mg/dL (8.5-10.5); Carbon Dioxide 19 mmol/L (22-29); Chloride 98 mmol/L (98-107); Globulin 2.9 g/dL (1.3-4.6); Glomerular Filtration Rate 124.2 mL/min (90-130); Glucose 263 mg/dL (65-115); Osmolality Calculated 284 mOsm/kg (285-295); Sodium 132 mmol/L (136-145); Total Protein 6.9 g/dL (6.6-8.7)
[2023-03-26 13:46] LABS: Anion Gap 19.8 (5-19); Aspartate Amino Transferase 66 U/L (0-32); Potassium 4.8 mmol/L (3.5-5.1)
[2023-03-26 13:47] LABS: Glucose Urine UA 4+ (Normal); Protein Urine Trace (Negative); Specific Gravity, Urine 1.015 (1.005-1.030); Urine Appearance Cloudy (CLEAR); Urine Color Yellow (Yellow); pH Urine 7 (5-7)
[2023-03-26 13:48] LABS: Add Urine Microscopic? YES; Bilirubin Urine Neg (Negative); Blood Urine 2+ (Negative); Ketones Urine 1+ (Negative); Leukocyte Esterase Urine Trace (Negative); Nitrate Urine Negative (Negative); Squamous Epithelial Cell Urine 0-4 /hpf (0-5); Urobilinogen Urine 4 mg/dL (Negative); WBC Urine 15-25 /hpf (0-5)
[2023-03-26 13:49] LABS: Add Urine Culture? Yes; Bacteria Urine 4+ /hpf
[2023-03-26] MEDS: cefTRIAXone 1,000 MG in sodium chloride 0.9% (plus) 50 ML 100 MG IV (13:58)
[2023-03-26] MEDS: sodium chloride 0.9% 1,000 ML 999 ML IV (14:03)
--- NOTE | 2023-03-26 14:18 | ECG_ITS ---
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 Measurements Intervals [place] Rate: 70 P: 53 ME: 131 QRS: -42 QRSD: 80 T: 27 QT: 355 QTc: 385 Interpretive Statements SINUS RHYTHM LEFT AXIS DEVIATION [QRS AXIS < -30] PATTERN CONSISTENT WITH PULMONARY DISEASE MINIMAL ST DEPRESSION [0.025+ mV ST DEPRESSION] Compared to ECG 03/26/2023 12:43:03 ST (T wave) deviation now present Myocardial infarct finding no longer present Electronically Signed On 03-27-2023 8:36:36 WIND ENERGY TECHNICIAN by Salvatore Saenz M.D. [id number]
[2023-03-26] MEDS: levETIRAcetam 1,000 MG/100 ML PREMIX 400 MG IV (14:27)
[2023-03-26 14:39] LABS: Reflex Lactate Order REFLEX LACTIC ORDERD
[2023-03-26 15:38] LABS: Troponin 5 2HR 15.93 ng/L (0-10); Troponin 5 2HR Delta -0.07 ABS# (0-10)
--- NOTE | 2023-03-26 16:39 | P.HP_ITS ---
Providers/Chief Complaint 2 Admitting Physician: Rich Bedolla Primary Care Provider: Donal Laughlin MD Chief Complaint: AMS History of Present Illness 63-year-old lady with history of epilepsy, rheumatoid arthritis, on Keppra, on tofacitinib, was admitted after found to be sitting in her chair by her neighbor. Ta an unknown tablet was found near her chair. She lives alone but has been having difficulty managing recently. Her family have been trying to set up 24-hour care with hospice for her. She has been resistant to the idea of moving to a different place. Her family Honorio spoke with her on Tuesday, her neighbor reportedly came over yesterday and gave her some ice cream and she reportedly was doing okay. Her neighbor checked on her today after she did not return her family's phone call. She has history of metastatic melanoma to the brain, prior craniectomy, poor healing after receiving radiation treatment. In ER found with decorticate posturing, obtunded. She is usually alert, responsive and oriented. CT head in ER with new 5 x 2 mm high density focus in the right skip could be acute or subacute hemorrhage or could be benign calcification due to old trauma or inflammation/infection. Unchanged moderate atrophy of the brain with chronic ischemic changes bilaterally. Multiple new lytic lesions throughout the bones could be metastatic disease, myelodysplastic disorder such as MM or metabolic disorder affecting serum calcium and/or phosphate levels. With patient's overall quality of life, progressive decline in health recently, goals of care, family do not find that any surgical intervention would be reasonable but would be agreeable to medical intervention. Discussed with ER physician to proceed with loading with IV Keppra. Attempt initially started for transfer due due to suspected complex partial seizure/status epilepticus. However, she showed improvement after she received IV Keppra in ER, on reassessment she is no longer posturing, moving all extremities, giving some limited verbal responses. Family understand that there is no neurology or EEG available in the hospital in case of possibility of recurrence of seizure, status epilepticus, with possibility of potentially disabling neurologic injury in case of protracted seizure/inadequately treated seizure, other complications. They would like to proceed with hospitalization here, are okay with additional closer monitoring in ICU in the beginning and postictal state, monitoring for additional seizure clinically, understand there is no EEG, and treating UTI. Family states she also has been having diarrhea for a while. Review of Systems 2 General: Reports: ROS unobtainable due to mental status Medications/Allergies Home Medications Medication Instructions Recorded Confirmed Last Taken Type lisinopril 10 1 tab PO DAILY 03/09/19 03/26/23 Unknown History mg-hydrochlorothiazide 12.5 mg tablet ibuprofen 600 mg tablet 600 mg PO BID PRN Pain 12/31/19 03/26/23 Unknown History prednisone 10 mg tablet See Rx Instructions PO .COMPLEX 01/13/22 03/26/23 Unknown Rx PRN joint pain #30 tabs tofacitinib 11 mg tablet,extended 11 mg PO DAILY #90 tabs 03/09/23 03/26/23 Unknown Rx release 24 hr (Xeljanz XR) levetiracetam 500 mg tablet 500 mg PO BID 03/26/23 03/26/23 Unknown History Allergies Allergy/AdvReac Type Severity Reaction Status Date / Time No Known Allergies Allergy Verified 03/26/23 14:09 PFSH Acute 2 PFSH: Medical History High risk medication use Immunization counseling Melanoma metastatic to brain History of brain tumor Rheumatoid arthritis Surgical History No pertinent past surgical history Family History Other Arthritis Cancer Diabetes Social History Smoking and tobacco/nicotine status: never used tobacco/nicotine Second hand smoke exposure: No Alcohol intake: never Substance/Drug Use: never Adopted: No Marital status: Vitals/I&O/Wt Last Vital Signs Temp 98.6 F 03/26/23 12:08 Pulse 65 03/26/23 16:30 Resp 18 03/26/23 16:30 BP 165/91 03/26/23 16:30 Pulse Ox 96 03/26/23 16:30 O2 Del Method Room Air 03/26/23 14:19 03/26/23 03/26/23 03/26/23 06:59 14:59 22:59 Intake Total 150 / 150 Balance 150 / 150 Physical Exam 2 Const: COMMON NORMALS: patient oriented x3 and alert GENERAL APPEARANCE: c ooperative ORIENTATION/CONSCIOUSNESS: Yes awake HENMT: COMMON NORMALS: oropharynx normal Neck/C-Spine: COMMON NORMALS: no JVD Resp: COMMON NORMALS: normal respiratory effort and clear to auscultation bilaterally AUSCULTATION: clear to auscultation bilaterally Cardio: COMMON NORMALS: no JVD, regular rhythm, S1 normal heart sound present, S2 normal heart sound present and No murmurs present (Cardio) RHYTHM: regular rhythm HEART SOUNDS: S1 normal heart sound present and S2 normal heart sound present GI: COMMON NORMALS: Normal to inspection, nondistended, normoactive bowel sounds present, Soft to palpation and non-tender PALPATION: Yes Soft to palpation Extremity: COMMON NORMALS: no joint enlargement and no pedal edema N ARRATIVE EXTREMITY EXAM: Wind swept and swan neck deformities BL hands. Neuro: COMMON NORMALS: patient oriented x3 and moves all extremities S ENSORIUM/ORIENTATION: Yes alert Skin: COMMON NORMALS: no rashes or lesions noted GENERAL SKIN EXAM: no rashes or lesions noted Urinary Catheter Management: [place]: Cath Placed During This Visit: yes Urinary Catheter Date of Insertion: 03/26/23 Urinary Catheter Time of Insertion: 13:15 Data 03/26/23 12:44 03/26/23 12:44 A&P Assessment and plan (1) Encephalopathy acute: Acute encephalopathy on presentation obtunded, with some decorticate posturing, concern for complex partial seizure, given a dose of Keppra, afterwards appears to be doing better. Postictal, but no longer posturing. Moving all extremities. Appears to give some limited verbal responses. Continue Keppra IV. Family understand that we do not have EEG I have no way to confirm in case of further AMS whether there may be recurrence of complex partial seizures. Additionally focus of hemorrhagic stroke in the skip newly noted on CT, 5 x 2 mm suspected subacute hemorrhage versus benign calcification from old trauma or inflammation/infection. Family would not want find neurosurgical intervention appropriate even if ndicated given patient's overall poor quality of life, continued functional decline. They have been making arrangements for hospice with 24-hour care, although this has been difficult. Patient has been unwilling to consider moving from her home. Continue seizure precautions. Will check magnesium. Phosphorus. Reviewed vitals, CBC, electrolytes. Recheck sodium, hyponatremia is mild. Noted chronic mild transaminitis. Reviewed ER note, discussed with ER physician. She otherwise has no white count, no fever, is immunocompromise, does not appear to have suggestion of [employer] infection, without headache, meningismus. Treat UTI. Reports chronic diarrhea, will recheck C. difficile. (2) Cerebrovascular accident of right pontine structure: Monitor blood pressures, will add hydralazine as needed. Monitor in ICU initially. Avoid antiplatelets, anticoagulants, SCD only for DVT prophylaxis. 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 Hold for now. Treat UTI. Check chest x-ray. (4) Seropositive rheumatoid arthritis of multiple joints: (5) Goals of care, counseling/discussion: Family wants medical treatment for her condition, but no CPR in case of cardiopulmonary arrest, otherwise no major interventions, surgical interventions, etc. fiding dosing compatible with her overall condition, poor quality of life, functional decline, goals. Discussed with her daughter and granddaughter at bedside by ER physician and myself. Plan Metastatic melanoma history: Noted multiple new lytic lesions throughout the bones, could be metastatic, and may suspect from metastatic melanoma. Alternatively could be multiple myeloma. Mentioned differential metabolic disorders, although calcium is normal. Check phosphorus. Severe rheumatoid arthritis: Functionally limiting. Declining quality of life and functional capacity. Not managing things at home. Family working on setting up hospice care with 24-hour care at home. Patient has been unwilling to consider moving from home. Case management consultation. History of craniectomy after complication of brain irradiation of metastatic malignancy. Attestations 2 Medical Necessity Statement*: Admission of over 2 midnights anticipated for assessment management of encephalopathy, and lady with hemorrhagic infarct of the skip, suspected complex partial seizure, postictal state, UTI in setting of immunocompromise with rheumatoid arthritis and treatment. Coding Level of Care Code Critical Care >/= 30 minutes Critical care time (in minutes): 35 The high probability of a clinically significant, sudden or life threatening deterioration, as referenced in this documentation, required my full and direct attention, intervention and personal management. The critical care time shown is in addition to time spent performing any reported separately billable procedures and includes the following: [x] Data and vital sign review and interpretation [x ] Patient assessment, examination and intervention [x] Medication orders and management [x] Patient/Family updates as able [x] Care Coordination and Documentation. Diagnoses Encephalopathy acute G93.40 Cerebrovascular accident of right pontine structure I63.50 Immunodeficiency secondary to chemotherapy Z79.899 Seropositive rheumatoid arthritis of multiple joints M05.79 Goals of care, counseling/discussion Z71.89
--- NOTE | 2023-03-26 17:04 | XRR_ITS ---
PROCEDURE INFORMATION: Exam: XR Chest Exam date and time: 03/26/2023 5:51 PM Age: 63 years old Clinical indication: Other: AMS; Additional info: AMS, immunocompromise TECHNIQUE: Imaging protocol: Radiologic exam of the chest. Views: 1 view. COMPARISON: CR XR chest 2V* [id number] 05/27/2020 3:12 PM FINDINGS: Lungs: Unremarkable. No consolidation. Pleural spaces: Chronic blunting pleural-parenchymal thickening is unchanged studies at least as far back as 03/24/2018. Heart/Mediastinum: Unremarkable. No cardiomegaly. Bones/joints: Unremarkable. XR/XR chest 1V portable [id number] IMPRESSION: No acute plain radiographic abnormality or interval change from prior imaging. Chronic residual pleural-parenchymal scarring in the left costophrenic angle.
[2023-03-26] MEDS: pantoprazole 40 mg SDV IVP (18:14)
[2023-03-26 20:00] LABS: Lactic Acid level (Lactate) 2.9 mmol/L (0.5-2.2)
[2023-03-26 20:01] LABS: Troponin 5 6HR 20.49 ng/L (0-10); Troponin 5 6HR Delta 4.49 ng/L (0-12)
[2023-03-26 23:47] LABS: Adenovirus Not Detected (NOT DETECT); Chlamydia Pneumoniae Not Detected (NOT DETECT); Coronavirus 229E,HKU1,NL63,OC4 Not Detected (NOT DETECT); Human Metapneumovirus Not Detected (NOT DETECT); Human Rhinovirus/Enterovirus Not Detected (NOT DETECT); Influenza A Not Detected (NOT DETECT); Influenza A H1 Not Detected (NOT DETECT); Influenza A H1-2009 Not Detected (NOT DETECT); Influenza A H3 Not Detected (NOT DETECT); Influenza B Not Detected (NOT DETECT); Mycoplasma Pneumoniae Not Detected (NOT DETECT); Parainfluenza Virus Type 1 Not Detected (NOT DETECT); Parainfluenza Virus Type 2 Not Detected (NOT DETECT); Parainfluenza Virus Type 3 Not Detected (NOT DETECT); Parainfluenza Virus Type 4 Not Detected (NOT DETECT); Respiratory Syncytial Virus A Not Detected (NOT DETECT); Respiratory Syncytial Virus B Not Detected (NOT DETECT); SARS-COV-2 Not Detected (NOT DETECT)
[2023-03-27] VITALS (61 sets, daily range): BP systolic 101–156; BP diastolic 42–125; PULSE 56–91; RESP 13–22; TEMP 36.8–38.1; O2SAT 94–99; BMI 25.7
[2023-03-27 01:13] LABS: Glucose Point of Care 327 mg/dL (70-110)
--- NOTE | 2023-03-27 01:26 | PC.NURSE ---
Blood glucose Patient's blood glucose [address] Ford notified; order received to start low dose sliding scale insulin humalog SUBQ WM/HS starting now. See MAR for details.
[2023-03-27] MEDS: insulin lispro 100 unit/1 mL SUBCUT ×5 (01:36→20:32)
[2023-03-27] MEDS: levETIRAcetam 1,000 MG/100 ML PREMIX 400 MG IV ×2 (01:37→14:43)
[2023-03-27 04:51] LABS: Basophils # 0.1 10^3/uL (0.0-0.1); Basophils % 0.5 %; Hematocrit 43.1 % (36-47); Lymphocytes # 2.2 10^3/uL (0.8-4.8); Lymphocytes % 19.8 %; Mean Corpuscular Hemoglobin 32.7 pg (27-33); Mean Corpuscular Volume 93.3 fl (85-98); Mean Platelet Volume 10.2 fL (7.4-10.4); Monocytes # 1.1 10^3/uL (0.2-0.9); Monocytes % 9.6 %; Neutrophils # 7.79 10^3/uL (1.8-7.7); Neutrophils % 69.5 %; Nucleated Red Blood Cells % 0 %; Platelet Count 263 10^3/cmm (157-399); Red Blood Count 4.62 10^6/uL (3.85-5.65); Red Cell Distribution Width 11.9 % (12.1-15.1); White Blood Count 11.22 10^3/uL (3.29-11.43)
[2023-03-27 05:11] LABS: Alanine Aminotransferase 43 U/L (0-33); Albumin Level 3.5 g/dL (3.5-5.2); Alkaline Phosphatase 72 U/L (35-105); Blood Urea Nitrogen 14 mg/dL (8-23); Calcium 8.6 mg/dL (8.5-10.5); Carbon Dioxide 22 mmol/L (22-29); Chloride 100 mmol/L (98-107); Globulin 3.3 g/dL (1.3-4.6); Glomerular Filtration Rate 160.7 mL/min (90-130); Glucose 189 mg/dL (65-115); Magnesium 1.9 mg/dL (1.7-2.3); Osmolality Calculated 282 mOsm/kg (285-295); Phosphorus 1.5 mg/dL (2.5-4.5); Sodium 133 mmol/L (136-145); Total Bilirubin 1.2 mg/dL (0.15-1.2); Total Protein 6.8 g/dL (6.6-8.7)
[2023-03-27 05:12] LABS: Aspartate Amino Transferase 44 U/L (0-32)
[2023-03-27 07:50] LABS: Glucose Point of Care 211 mg/dL (70-110)
[2023-03-27] MEDS: magnesium sulfate premix 1 GM/100 ML PIGGYBACK IV (09:52)
[2023-03-27 12:34] LABS: Glucose Point of Care 180 mg/dL (70-110)
--- NOTE | 2023-03-27 12:55 | PC.NURSE ---
transfer to 2nd [facility]
[2023-03-27] MEDS: cefTRIAXone 1,000 MG in sodium chloride 0.9% (plus) 50 ML 100 MG IV (14:26)
--- NOTE | 2023-03-27 15:12 | PC.NURSE ---
Dr Gr talked with daughter about care and test ordered .. will have conversation at times and other will just smile and no verbal response
[2023-03-27 17:23] LABS: Glucose Point of Care 188 mg/dL (70-110)
[2023-03-27] MEDS: pantoprazole 40 mg SDV IVP (17:30)
[2023-03-27 20:24] LABS: Glucose Point of Care 163 mg/dL (70-110)
--- NOTE | 2023-03-27 20:34 | P.PN_ITS ---
Subjective 2 Subjective: She is much more alert this morning, although unclear that she is cognitively back to self, per discussion with her daughter daughter states that she mostly is agreeable and answers yes to all questions. But otherwise she is alert, interactive and smiling. Seems in good spirits. Denies pain. Vitals/I&O/Wt Last Vital Signs Temp 100.5 F H 03/27/23 12:00 Pulse 56 L 03/27/23 18:00 Resp 13 03/27/23 18:00 BP 120/58 03/27/23 18:00 Pulse Ox 96 03/27/23 18:00 O2 Del Method Room Air 03/27/23 04:00 03/27/23 03/27/23 03/27/23 06:59 14:59 22:59 Intake Total 100 / 1350 350 / 350 150 / 500 Output Total 550 / 850 250 / 250 Balance -450 / 500 100 / 100 150 / 250 Weight last 48 hrs Weight 72.5 kg Weight 72 kg Physical Exam 2 Const: COMMON NORMALS: alert; negative for patient oriented x3 GENERAL APPEARANCE: cooperative O RIENTATION/CONSCIOUSNESS: Yes awake HENMT: COMMON NORMALS: oropharynx normal Neck/C-Spine: COMMON NORMALS: no JVD Resp: COMMON NORMALS: normal respiratory effort and clear to auscultation bilaterally AUSCULTATION: clear to auscultation bilaterally Cardio: COMMON NORMALS: no JVD, regular rhythm, S1 normal heart sound present, S2 normal heart sound present and No murmurs present (Cardio) RHYTHM: regular rhythm HEART SOUNDS: S1 normal heart sound present and S2 normal heart sound present GI: COMMON NORMALS: Normal to inspection, nondistended, normoactive bowel sounds present, Soft to palpation and non-tender PALPATION: Yes Soft to palpation Extremity: COMMON NORMALS: no joint enlargement and no pedal edema N ARRATIVE EXTREMITY EXAM: Wind swept and swan neck deformities BL hands. Neuro: COMMON NORMALS: moves all extremities; negative for patient oriented x3 SENSORIUM/ORIENTATION: Yes alert Skin: COMMON NORMALS: no rashes or lesions noted GENERAL SKIN EXAM: no rashes or lesions noted Urinary Catheter Management: [place]: Cath Placed During This Visit: yes Reason for Continuing Indwelling Catheter: Accurate Measurement of Urinary Output in Critically Ill Patients Urinary Catheter Date of Insertion: 03/26/23 Urinary Catheter Time of Insertion: 13:15 Data 03/27/23 04:33 03/27/23 04:33 Micro: Microbiology 03/26/23 12:58 Urine Culture - Preliminary Urine,Clean Catch Gram Negative Rods A&P Assessment and plan (1) Encephalopathy acute: With partial improvement. She is awake and alert, interactive. In good spirits. However, not back to baseline. Daughter states she is still confused, mostly agreeable with any statements. Unable to provide history. Not oriented. Reviewed vitals, CBC, CMP. Blood culture, urine culture. Monitor for any seizure. Requesting speech therapy assessment. Switch to oral antiepileptic once able to tolerate oral intake. Continue treatment of UTI. Hopefully may improve further with recovery, however, discussed with her daughter may have some permanent deficits given hemorrhagic stroke, additionally with suspected possible metastatic disease as visualized on CT head. Requested transfer out of ICU. Suspected complex partial seizure, postictal after Keppra but no longer posturing. Additionally focus of hemorrhagic stroke in the skip newly noted on CT, 5 x 2 mm suspected subacute hemorrhage versus benign calcification from old trauma or inflammation/infection. Family would not want find neurosurgical intervention appropriate even if ndicated given patient's overall poor quality of life, continued functional decline. They have been making arrangements for hospice with 24-hour care, although this has been difficult. Patient has been unwilling to consider moving from her home. 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 Treat UTI. Reviewed urine culture, noted gram-negative rods growing. Continue ceftriaxone. Reports chronic diarrhea, will recheck C. difficile. Replace hypomagnesemia. Needs replacement of hypophosphatemia. Potassium as high as 4.8. Replace once tolerating oral intake. Monitor on telemetry. At risk of arrhythmia. (2) Cerebrovascular accident of right pontine structure: Monitor blood pressures. Blood pressure doing better, 120/58. Monitor in ICU initially. Avoid antiplatelets, anticoagulants, SCD only for DVT prophylaxis. 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 Hold for now. Treat UTI. Check chest x-ray. (4) Seropositive rheumatoid arthritis of multiple joints: (5) Goals of care, counseling/discussion: Limited goals of care. No aggressive interventions. Continue medical treatment. Case management consultation for hospice arrangements after discharge, possibly at senior care versus at home with 24-hour care. Family wants medical treatment for her condition, but no CPR in case of cardiopulmonary arrest, otherwise no major interventions, surgical interventions, etc. fiding dosing compatible with her overall condition, poor quality of life, functional decline, goals. Plan Metastatic melanoma history: Noted multiple new lytic lesions throughout the bones, could be metastatic, and may suspect from metastatic melanoma. Alternatively could be multiple myeloma. Mentioned differential metabolic disorders, although calcium is normal. Phosphorus is low. Would benefit from replacement once tolerating oral intake as potassium on the higher side. Severe rheumatoid arthritis: Functionally limiting. Declining quality of life and functional capacity. Not managing things at home. Family working on setting up hospice care with 24-hour care at home. Patient has been unwilling to consider moving from home. Case management consultation. History of craniectomy after complication of brain irradiation of metastatic malignancy. Attestations 2 Medical Necessity Statement*: Continue admission for assessment management of encephalopathy, and lady with hemorrhagic infarct of the skip, suspected complex partial seizure, UTI in setting of immunocompromise with rheumatoid arthritis and treatment. Diagnoses Encephalopathy acute G93.40 Cerebrovascular accident of right pontine structure I63.50 Immunodeficiency secondary to chemotherapy Z79.899 Seropositive rheumatoid arthritis of multiple joints M05.79 Goals of care, counseling/discussion Z71.89
[2023-03-28] VITALS (7 sets, daily range): BP systolic 99–127; BP diastolic 63–79; PULSE 62–90; RESP 16–20; TEMP 36.5–37.1; O2SAT 95–97
--- NOTE | 2023-03-28 00:03 | PC.NURSE ---
patient transferred to [facility]
[2023-03-28] MEDS: levETIRAcetam 1,000 MG/100 ML PREMIX 400 MG IV ×2 (01:52→14:13)
[2023-03-28 05:47] LABS: Basophils % 0.5 %; Eosinophils % 0.6 %; Hematocrit 42.3 % (36-47); Lymphocytes # 0.8 10^3/uL (0.8-4.8); Lymphocytes % 12.8 %; Mean Corpuscular Hemoglobin 32.4 pg (27-33); Mean Corpuscular Volume 92.6 fl (85-98); Mean Platelet Volume 10.3 fL (7.4-10.4); Monocytes # 0.5 10^3/uL (0.2-0.9); Monocytes % 7.8 %; Neutrophils # 5.05 10^3/uL (1.8-7.7); Neutrophils % 77.7 %; Nucleated Red Blood Cells % 0 %; Platelet Count 207 10^3/cmm (157-399); Red Blood Count 4.57 10^6/uL (3.85-5.65); Red Cell Distribution Width 11.9 % (12.1-15.1)
[2023-03-28 06:01] LABS: Phosphorus 2.5 mg/dL (2.5-4.5)
[2023-03-28 06:04] LABS: Alanine Aminotransferase 61 U/L (0-33); Albumin Level 3.2 g/dL (3.5-5.2); Alkaline Phosphatase 73 U/L (35-105); Anion Gap 15.5 (5-19); Aspartate Amino Transferase 142 U/L (0-32); Blood Urea Nitrogen 17 mg/dL (8-23); Calcium 8.4 mg/dL (8.5-10.5); Carbon Dioxide 21 mmol/L (22-29); Chloride 102 mmol/L (98-107); Globulin 2.7 g/dL (1.3-4.6); Glomerular Filtration Rate 124.2 mL/min (90-130); Glucose 215 mg/dL (65-115); Magnesium 2.2 mg/dL (1.7-2.3); Osmolality Calculated 288 mOsm/kg (285-295); Potassium 3.5 mmol/L (3.5-5.1); Sodium 135 mmol/L (136-145); Total Bilirubin 1.3 mg/dL (0.15-1.2); Total Protein 5.9 g/dL (6.6-8.7)
[2023-03-28 06:55] LABS: Glucose Point of Care 205 mg/dL (70-110)
[2023-03-28] MEDS: lisinopril 10 mg Tablet 5 MG PO (08:45)
[2023-03-28] MEDS: insulin lispro 100 unit/1 mL SUBCUT ×2 (08:46→13:03)
[2023-03-28 11:45] LABS: Glucose Point of Care 159 mg/dL (70-110)
[2023-03-28] MEDS: cefTRIAXone 1,000 MG in sodium chloride 0.9% (plus) 50 ML 100 MG IV (14:16)
--- NOTE | 2023-03-28 17:06 | P.PN_ITS ---
Subjective 2 Subjective: Hospital course, labs appreciated. Examination patient sitting comfortably in bed with daughters at bedside. Patient is awake and alert to self, being in the hospital, year though she is not sure why she is in the hospital. She is aware of her past medical history. Asking to be discharged as soon as possible. Agreeable to go to SNF as per daughter's request. Vitals/I&O/Wt Last Vital Signs Temp 98.2 F 03/28/23 12:00 Pulse 90 03/28/23 12:00 Resp 18 03/28/23 12:00 BP 117/65 03/28/23 12:00 Pulse Ox 95 03/28/23 12:00 O2 Del Method Room Air 03/28/23 08:00 03/28/23 03/28/23 03/28/23 06:59 14:59 22:59 Intake Total 100 / 620 390 / 390 Output Total 300 / 550 Balance -200 / 70 390 / 390 Weight last 48 hrs Weight 75.892 kg Weight 72.5 kg Physical Exam 2 Const: COMMON NORMALS: alert; negative for patient oriented x3 GENERAL APPEARANCE: cooperative O RIENTATION/CONSCIOUSNESS: Yes awake HENMT: COMMON NORMALS: oropharynx normal Neck/C-Spine: COMMON NORMALS: no JVD Resp: COMMON NORMALS: normal respiratory effort and clear to auscultation bilaterally AUSCULTATION: clear to auscultation bilaterally Cardio: COMMON NORMALS: no JVD, regular rhythm, S1 normal heart sound present, S2 normal heart sound present and No murmurs present (Cardio) RHYTHM: regular rhythm HEART SOUNDS: S1 normal heart sound present and S2 normal heart sound present GI: COMMON NORMALS: Normal to inspection, nondistended, normoactive bowel sounds present, Soft to palpation and non-tender PALPATION: Yes Soft to palpation Extremity: COMMON NORMALS: no joint enlargement and no pedal edema N ARRATIVE EXTREMITY EXAM: Wind swept and swan neck deformities BL hands. Neuro: COMMON NORMALS: moves all extremities; negative for patient oriented x3 SENSORIUM/ORIENTATION: Yes alert Skin: COMMON NORMALS: no rashes or lesions noted GENERAL SKIN EXAM: no rashes or lesions noted Urinary Catheter Management: [place]: Cath Placed During This Visit: yes Reason for Continuing Indwelling Catheter: Accurate Measurement of Urinary Output in Critically Ill Patients Urinary Catheter Date of Insertion: 03/26/23 Urinary Catheter Time of Insertion: 13:15 Data 03/28/23 04:50 03/28/23 04:50 Micro: Microbiology 03/26/23 12:58 Urine Culture - Final Urine,Clean Catch Escherichia coli A&P Assessment and plan (1) Encephalopathy acute: With partial improvement. She is awake and alert, interactive. In good spirits. However, not back to baseline. Daughter states she is still confused, mostly agreeable with any statements. Unable to provide history. Not oriented. Reviewed vitals, CBC, CMP. Blood culture, urine culture. Monitor for any seizure. Requesting speech therapy assessment. Switch to oral antiepileptic once able to tolerate oral intake. Continue treatment of UTI. Hopefully may improve further with recovery, however, discussed with her daughter may have some permanent deficits given hemorrhagic stroke, additionally with suspected possible metastatic disease as visualized on CT head. Requested transfer out of ICU. Suspected complex partial seizure, postictal after Keppra but no longer posturing. Additionally focus of hemorrhagic stroke in the skip newly noted on CT, 5 x 2 mm suspected subacute hemorrhage versus benign calcification from old trauma or inflammation/infection. Family would not want find neurosurgical intervention appropriate even if ndicated given patient's overall poor quality of life, continued functional decline. They have been making arrangements for hospice with 24-hour care, although this has been difficult. Patient has been unwilling to consider moving from her home. Does not appear to have suggestion of PUBLIC WORKS MANAGER infection, without headache, meningismus. Treat UTI. Reviewed urine culture, noted gram-negative rods growing. Continue ceftriaxone. Reports chronic diarrhea, will recheck C. difficile. Replace hypomagnesemia. Needs replacement of hypophosphatemia. Potassium as high as 4.8. Replace once tolerating oral intake. Monitor on telemetry. At risk of arrhythmia. (2) Cerebrovascular accident of right pontine structure: Monitor blood pressures. Blood pressure doing better, 120/58. Monitor in ICU initially. Avoid antiplatelets, anticoagulants, SCD only for DVT prophylaxis. 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 Hold for now. Treat UTI. Check chest x-ray. (4) Seropositive rheumatoid arthritis of multiple joints: (5) Goals of care, counseling/discussion: Limited goals of care. No aggressive interventions. Continue medical treatment. Case management consultation for hospice arrangements after discharge, possibly at long term versus at home with 24-hour care. Family wants medical treatment for her condition, but no CPR in case of cardiopulmonary arrest, otherwise no major interventions, surgical interventions, etc. fiding dosing compatible with her overall condition, poor quality of life, functional decline, goals. (6) Seizure disorder: (7) Urinary tract infection: Qualifiers: Hematuria presence: with hematuria Urinary tract infection type: acute cystitis Qualified Code(s): N30.01 - Acute cystitis with hematuria (8) Brain mass: (9) Skull lesion: Plan Metastatic melanoma history: Noted multiple new lytic lesions throughout the bones, could be metastatic, and may suspect from metastatic melanoma. Alternatively could be multiple myeloma. Mentioned differential metabolic disorders, although calcium is normal. Phosphorus is low. Would benefit from replacement once tolerating oral intake as potassium on the higher side. Severe rheumatoid arthritis: Functionally limiting. Declining quality of life and functional capacity. Not managing things at home. Family working on setting up hospice care with 24-hour care at home. Patient has been unwilling to consider moving from home. Case management consultation. History of craniectomy after complication of brain irradiation of metastatic malignancy. Plan for the day: Appreciate urine culture. For now continue with IV Rocephin. Will plan to switch over to oral Keflex on discharge. Continue with IV Keppra 1000 mg every 12 hourly. Goal blood pressure less than 140/99. Continue with lisinopril. Discussed her CT scan which was done on admission in detail. Discussed new lesion in the brain along with multiple lytic lesions. Discussed there is a high concern for malignancy though primary is not currently known. Discussed further workup should be decided on the further goals and long-term plans. Discussed to plan going forward. Depending on the goals of care. If patient wants to pursue further treatment then we should go for CT chest abdomen pelvis to look for primary with possible needle biopsy and follow-up as an outpatient with oncology versus if goals of care are not to do anything aggressive given her baseline health, quality of life, new lesions in the brain then we should look for possible hospice which would concentrate on keeping patient comfortable. Daughter verbalized understanding and is agreeable. Will discuss further with family and patient before making decision. Daughter otherwise requesting patient to be placed to SNF. Patient is agreeable. Case management alerted. Daughter wants patient to be DNR/DNI. Advance diet as per speech evaluation. PT evaluation. Attestations 2 Medical Necessity Statement*: Requires further hospitalization for management of UTI, metabolic encephalopathy in setting of seizure disorder in a patient with new brain mass, multiple lytic lesion to skull while primary malignancy is sought Diagnoses Encephalopathy acute G93.40 Cerebrovascular accident of right pontine structure I63.50 Immunodeficiency secondary to chemotherapy Z79.899 Seropositive rheumatoid arthritis of multiple joints M05.79 Goals of care, counseling/discussion Z71.89 Seizure disorder G40.909 Urinary tract infection N30.01 Hematuria presence: with hematuria Urinary tract infection type: acute cystitis Brain mass G93.89 Skull lesion M89.9
[2023-03-28] MEDS: pantoprazole 40 mg SDV IVP (18:04)
[2023-03-28 18:33] LABS: Gamma Glutamyl Transferase 94 U/L (5-36); Lactate Dehydrogenase 317 U/L (135-214); Thyroid Stimulating Hormone 2.06 uIU/mL (0.27-4.20); Vitamin B12 491 pg/mL (232-1245)
[2023-03-29] VITALS (9 sets, daily range): BP systolic 95–147; BP diastolic 61–82; PULSE 63–91; RESP 16–18; TEMP 36.6–36.7; O2SAT 94–96
[2023-03-29] MEDS: levETIRAcetam 1,000 MG/100 ML PREMIX 400 MG IV ×2 (02:32→13:43)
[2023-03-29 05:43] LABS: Basophils % 0.4 %; Eosinophils # 0.1 10^3/uL (0.0-0.8); Eosinophils % 0.9 %; Hematocrit 41.2 % (36-47); Mean Corpuscular HGB Conc 34.7 g/dL (30-55); Mean Corpuscular Hemoglobin 32.4 pg (27-33); Mean Corpuscular Volume 93.2 fl (85-98); Mean Platelet Volume 10.4 fL (7.4-10.4); Monocytes # 0.6 10^3/uL (0.2-0.9); Monocytes % 8.5 %; Neutrophils # 5.04 10^3/uL (1.8-7.7); Neutrophils % 74.8 %; Nucleated Red Blood Cells % 0 %; Platelet Count 215 10^3/cmm (157-399); Red Blood Count 4.42 10^6/uL (3.85-5.65); Red Cell Distribution Width 11.9 % (12.1-15.1); White Blood Count 6.74 10^3/uL (3.29-11.43)
[2023-03-29 06:05] LABS: Alanine Aminotransferase 53 U/L (0-33); Albumin Level 3.1 g/dL (3.5-5.2); Alkaline Phosphatase 79 U/L (35-105); Anion Gap 15.2 (5-19); Aspartate Amino Transferase 75 U/L (0-32); Blood Urea Nitrogen 14 mg/dL (8-23); Calcium 8.6 mg/dL (8.5-10.5); Carbon Dioxide 20 mmol/L (22-29); Chloride 102 mmol/L (98-107); Globulin 2.7 g/dL (1.3-4.6); Glomerular Filtration Rate 124.2 mL/min (90-130); Glucose 326 mg/dL (65-115); Magnesium 2.1 mg/dL (1.7-2.3); Osmolality Calculated 291 mOsm/kg (285-295); Potassium 3.2 mmol/L (3.5-5.1); Sodium 134 mmol/L (136-145); Total Bilirubin 0.7 mg/dL (0.15-1.2); Total Protein 5.8 g/dL (6.6-8.7)
[2023-03-29 06:06] LABS: Phosphorus 3.1 mg/dL (2.5-4.5)
[2023-03-29 06:18] LABS: Estmated Average Glucose 289; Hemoglobin A1C 11.7 % (4.0-6.0)
[2023-03-29 06:28] LABS: Folate Level 18.1 ng/mL (4.8-37.3)
[2023-03-29] MEDS: lisinopril 10 mg Tablet 5 MG PO (07:56)
[2023-03-29] MEDS: cefTRIAXone 1,000 MG in sodium chloride 0.9% (plus) 50 ML 100 MG IV (13:44)
--- NOTE | 2023-03-29 15:28 | P.PN_ITS ---
Subjective 2 Subjective: No acute events overnight. Patient remains hemodynamically stable and at baseline mentation. States she was not able to sleep last night because she kept getting disturbed by her neighbor snoring. Otherwise denies new complaints. Seen with daughter at bedside. Vitals/I&O/Wt Last Vital Signs Temp 97.8 F 03/29/23 11:57 Pulse 71 03/29/23 15:26 Resp 16 03/29/23 15:26 BP 147/72 03/29/23 15:26 Pulse Ox 95 03/29/23 15:26 O2 Del Method Room Air 03/29/23 15:26 03/29/23 03/29/23 03/29/23 06:59 14:59 22:59 Intake Total 100 / 970 630 / 630 Output Total 700 / 900 800 / 800 Balance -600 / 70 630 / 630 -800 / -170 Weight last 48 hrs Weight 74.389 kg Weight 75.892 kg Physical Exam 2 Const: COMMON NORMALS: alert; negative for patient oriented x3 GENERAL APPEARANCE: cooperative O RIENTATION/CONSCIOUSNESS: Yes awake HENMT: COMMON NORMALS: oropharynx normal Neck/C-Spine: COMMON NORMALS: no JVD Resp: COMMON NORMALS: normal respiratory effort and clear to auscultation bilaterally AUSCULTATION: clear to auscultation bilaterally Cardio: COMMON NORMALS: no JVD, regular rhythm, S1 normal heart sound present, S2 normal heart sound present and No murmurs present (Cardio) RHYTHM: regular rhythm HEART SOUNDS: S1 normal heart sound present and S2 normal heart sound present GI: COMMON NORMALS: Normal to inspection, nondistended, normoactive bowel sounds present, Soft to palpation and non-tender PALPATION: Yes Soft to palpation Extremity: COMMON NORMALS: no joint enlargement and no pedal edema N ARRATIVE EXTREMITY EXAM: Wind swept and swan neck deformities BL hands. Neuro: COMMON NORMALS: moves all extremities; negative for patient oriented x3 SENSORIUM/ORIENTATION: Yes alert Skin: COMMON NORMALS: no rashes or lesions noted GENERAL SKIN EXAM: no rashes or lesions noted Urinary Catheter Management: [place]: Cath Placed During This Visit: yes Reason for Continuing Indwelling Catheter: Accurate Measurement of Urinary Output in Critically Ill Patients Urinary Catheter Date of Insertion: 03/26/23 Urinary Catheter Time of Insertion: 13:15 Data 03/29/23 05:24 03/29/23 05:24 A&P Assessment and plan (1) Encephalopathy acute: With partial improvement. She is awake and alert, interactive. In good spirits. However, not back to baseline. Daughter states she is still confused, mostly agreeable with any statements. Unable to provide history. Not oriented. Reviewed vitals, CBC, CMP. Blood culture, urine culture. Monitor for any seizure. Requesting speech therapy assessment. Switch to oral antiepileptic once able to tolerate oral intake. Continue treatment of UTI. Hopefully may improve further with recovery, however, discussed with her daughter may have some permanent deficits given hemorrhagic stroke, additionally with suspected possible metastatic disease as visualized on CT head. Requested transfer out of ICU. Suspected complex partial seizure, postictal after Keppra but no longer posturing. Additionally focus of hemorrhagic stroke in the skip newly noted on CT, 5 x 2 mm suspected subacute hemorrhage versus benign calcification from old trauma or inflammation/infection. Family would not want find neurosurgical intervention appropriate even if ndicated given patient's overall poor quality of life, continued functional decline. They have been making arrangements for hospice with 24-hour care, although this has been difficult. Patient has been unwilling to consider moving from her home. 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 Treat UTI. Reviewed urine culture, noted gram-negative rods growing. Continue ceftriaxone. Reports chronic diarrhea, will recheck C. difficile. Replace hypomagnesemia. Needs replacement of hypophosphatemia. Potassium as high as 4.8. Replace once tolerating oral intake. Monitor on telemetry. At risk of arrhythmia. (2) Cerebrovascular accident of right pontine structure: Monitor blood pressures. Blood pressure doing better, 120/58. Monitor in ICU initially. Avoid antiplatelets, anticoagulants, SCD only for DVT prophylaxis. 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 Hold for now. Treat UTI. Check chest x-ray. (4) Seropositive rheumatoid arthritis of multiple joints: (5) Goals of care, counseling/discussion: Limited goals of care. No aggressive interventions. Continue medical treatment. Case management consultation for hospice arrangements after discharge, possibly at [facility] versus at home with 24-hour care. Family wants medical treatment for her condition, but no CPR in case of cardiopulmonary arrest, otherwise no major interventions, surgical interventions, etc. fiding dosing compatible with her overall condition, poor quality of life, functional decline, goals. (6) Seizure disorder: (7) Urinary tract infection: Qualifiers: Hematuria presence: with hematuria Urinary tract infection type: acute cystitis Qualified Code(s): N30.01 - Acute cystitis with hematuria (8) Brain mass: (9) Skull lesion: Plan Metastatic melanoma history: Noted multiple new lytic lesions throughout the bones, could be metastatic, and may suspect from metastatic melanoma. Alternatively could be multiple myeloma. Mentioned differential metabolic disorders, although calcium is normal. Phosphorus is low. Would benefit from replacement once tolerating oral intake as potassium on the higher side. Severe rheumatoid arthritis: Functionally limiting. Declining quality of life and functional capacity. Not managing things at home. Family working on setting up hospice care with 24-hour care at home. Patient has been unwilling to consider moving from home. Case management consultation. History of craniectomy after complication of brain irradiation of metastatic malignancy. Plan for the day: Patient has remained hemodynamically stable and afebrile. At baseline mentation now. Switch to oral Keppra. Discussed again with patient's daughter at bedside. As per daughter they have discussed the further goals of care with patient and family. They do not want any further investigation and would want to transition over to hospice at SNF when possible. Case management alerted. Replace potassium with 80 mg oral. A1c found to be 11.7. Will start patient on insulin sliding scale at low-dose protocol again. Most likely patient will need to be discharged on subcu insulin on discharge. Carb consistent diet Attestations 2 Medical Necessity Statement*: Requires further hospitalization for management of acute metabolic encephalopathy in setting of brain mass with bony metastasis while outpatient hospice set up Diagnoses Encephalopathy acute G93.40 Cerebrovascular accident of right pontine structure I63.50 Immunodeficiency secondary to chemotherapy Z79.899 Seropositive rheumatoid arthritis of multiple joints M05.79 Goals of care, counseling/discussion Z71.89 Seizure disorder G40.909 Urinary tract infection N30.01 Hematuria presence: with hematuria Urinary tract infection type: acute cystitis Brain mass G93.89 Skull lesion M89.9
[2023-03-29 17:16] LABS: Glucose Point of Care 335 mg/dL (70-110)
[2023-03-29] MEDS: potassium chloride ER 20 mEq Tablet 80 MEQ PO (18:06)
[2023-03-29] MEDS: levETIRAcetam 1,000 mg/10 mL UDC 1000 MG PO (18:09)
[2023-03-29] MEDS: insulin lispro 100 unit/1 mL SUBCUT ×2 (18:09→22:24)
[2023-03-29] MEDS: pantoprazole 40 mg SDV IVP (20:36)
[2023-03-29 21:13] LABS: Glucose Point of Care 343 mg/dL (70-110)
[2023-03-30 04:00] VITALS: BP 142/61; PULSE 63; RESP 20; TEMP 36.6; O2SAT 96
[2023-03-30 05:50] VITALS: PULSE 62
[2023-03-30 06:36] LABS: Magnesium 1.9 mg/dL (1.7-2.3)
[2023-03-30 07:00] LABS: Phosphorus 3.5 mg/dL (2.5-4.5)
[2023-03-30 08:00] VITALS: BP 143/84; PULSE 67; RESP 16; TEMP 36.9; O2SAT 97
[2023-03-30] MEDS: levETIRAcetam 1,000 mg/10 mL UDC 1000 MG PO (08:27)
[2023-03-30] MEDS: insulin lispro 100 unit/1 mL SUBCUT ×2 (08:27→12:41)
[2023-03-30] MEDS: lisinopril 10 mg Tablet 5 MG PO (08:28)
[2023-03-30 10:58] LABS: Glucose Point of Care 372 mg/dL (70-110)
[2023-03-30 11:48] VITALS: BP 148/79; PULSE 74; RESP 18; TEMP 36.9; O2SAT 95
--- NOTE | 2023-03-30 12:54 | P.DS_ITS ---
Discharge Providers Date of Admission: 03/26/23 16:09 Date of Discharge: March 30, 2023 Attending Provider at Admission: Rich Bedolla Attending Provider at Discharge: Mack Hallman MD Primary Care Provider: Donal Laughlin MD Diagnoses at Discharge Discharge Diagnosis (1) Encephalopathy acute: Status: Acute (2) Cerebrovascular accident of right pontine structure: Status: Acute (3) Immunodeficiency secondary to chemotherapy: Status: Acute (4) Seropositive rheumatoid arthritis of multiple joints: Status: Chronic (5) Goals of care, counseling/discussion: Status: Acute (6) Seizure disorder: Status: Acute (7) Urinary tract infection: Status: Acute Qualifiers: Hematuria presence: with hematuria Urinary tract infection type: acute cystitis Qualified Code(s): N30.01 - Acute cystitis with hematuria (8) Brain mass: Status: Acute (9) Skull lesion: Status: Acute Reason for Visit Reason for Visit: AMS Brief History: History as per HPI: 63-year-old lady with history of epileps y, rheumatoid arthritis, on Keppra, on tofacitinib, was admitted after found to be sitting in her chair by her neighbor. Ta an unknown tablet was found near her chair. She lives alone but has been having difficulty managing recently. Her family have been trying to set up 24-hour care with hospice for her. She has been resistant to the idea of moving to a different place. Her family Honorio spoke with her on Tuesday, her neighbor reportedly came over yesterday and gave her some ice cream and she reportedly was doing okay. Her neighbor checked on her today after she did not return her family's phone call. She has history of metastatic melanoma to the brain, prior craniectomy, poor healing after receiving radiation treatment. In ER found with decorticate posturing, obtunded. She is usually alert, responsive and oriented. CT head in ER with new 5 x 2 mm high density focus in the right skip could be acute or subacute hemorrhage or could be benign calcification due to old trauma or inflammation/infection. Unchanged moderate atrophy of the brain with chronic ischemic changes bilaterally. Multiple new lytic lesions throughout the bones could be metastatic disease, myelodysplastic disorder such as MM or metabolic disorder affecting serum calcium and/or phosphate levels. With patient's overall quality of life, progressive decline in health recently, goals of care, family do not find that any surgical intervention would be reasonable but would be agreeable to medical intervention. Discussed with ER physician to proceed with loading with IV Keppra. Attempt initially started for transfer due due to suspected complex partial seizure/status epilepticus. However, she showed improvement after she received IV Keppra in ER, on reassessment she is no longer posturing, moving all extremities, giving some limited verbal responses. Family understand that there is no neurology or EEG available in the hospital in case of possibility of recurrence of seizure, status epilepticus, with possibility of potentially disabling neurologic injury in case of protracted seizure/inadequately treated seizure, other complications. They would like to proceed with hospitalization here, are okay with additional closer monitoring in ICU in the beginning and postictal state, monitoring for additional seizure clinically, understand there is no EEG, and treating UTI. Family states she also has been having diarrhea for a while. Hospital Course Hospital Course Patient was admitted to the hospital further evaluation and management of altered mental status. On admission there was a concern for her being in postictal status so she was started on IV Keppra. Her mentation did improve after the Keppra dose. On admission CT head was done which ruled out stroke but was consistent with a new brain mass along with multiple lytic lesions in the skull. Possibility of malignancy was again discussed in detail with patient and her primary DPOA/daughters in detail. We discussed going forward the options would be to have further workup with possibility of biopsy of the mass if found along with follow-up with oncology as an outpatient for definitive treatment versus hospice care. Daughter after discussion with multiple family members decided to go ahead with hospice care at SNF. During admission she was also found to be severely diabetic with A1c of more than 11. She is been discharged to SNF in hemodynamically stable condition on increased dose of Keppra 1000 mg twice daily, insulin sliding scale add Lantus 10 units twice daily. Physical Exam Const: COMMON NORMALS: alert; negative for patient oriented x3 GENERAL APPEARANCE: cooperative ORIENTATION/CONSCIOUSNESS: Yes awake HENMT: COMMON NORMALS: oropharynx normal Neck/C-Spine: COMMON NORMALS: no JVD Resp: COMMON NORMALS: normal respiratory effort and clear to auscultation bilaterally AUSCULTATION: clear to auscultation bilaterally Cardio: COMMON NORMALS: no JVD, regular rhythm, S1 normal heart sound present, S2 normal heart sound present and No murmurs present (Cardio) RHYTHM: regular rhythm HEART SOUNDS: S1 normal heart sound present and S2 normal heart sound present GI: COMMON NORMALS: Normal to inspection, nondistended, normoactive bowel sounds present, Soft to palpation and non-tender PALPATION: Yes Soft to palpation Extremity: COMMON NORMALS: no joint enlargement and no pedal edema NARRATIVE EXTREMITY EXAM: Wind swept and swan neck deformities BL hands. Neuro: COMMON NORMALS: moves all extremities; negative for patient oriented x3 SENSORIUM/ORIENTATION: Yes alert Skin: COMMON NORMALS: no rashes or lesions noted GENERAL SKIN EXAM: no rashes or lesions noted Urinary Catheter Management: [place]: Cath Placed During This Visit: yes Reason for Continuing Indwelling Catheter: Other Urinary Catheter Date of Insertion: 03/26/23 Urinary Catheter Time of Insertion: 13:15 Discharge Data Studies Completed and Pending Completed Studies During Hospitalization Category Date Time Status CT head wo con* [id number] Stat Cat Scan 03/26/23 12:17 Completed CXRP [XR chest 1V portable [id number]] Routine Exams 03/26/23 17:04 Completed Pending at discharge Category Date Time Status Blood Cultures ([facility]) Routine Lab 03/26/23 12:32 Received Blood Cultures ([facility]) Routine Lab 03/26/23 12:44 Received MAG [Magnesium] AM LABS Lab 03/31/23 04:00 Ordered Radiology Impressions Head CT 03/26/23 12:17 IMPRESSION: 1. New 5 mm x 2 mm high density focus in the right skip could be an acute or subacute hemorrhage, or could be benign calcification due to old trauma or inflammation/infection. 2. No other acute intracranial findings. 3. Unchanged moderate atrophy of the brain with chronic ischemic changes bilaterally. 4. Multiple new lytic lesions throughout the bones could be metastatic disease, a myelodysplastic disorder such as multiple myeloma, or due to a metabolic disorder affecting serum calcium and/or phosphate levels. 5. Additional details as above. ADDENDUM: 03/26/23 1356 ADDENDUM: THIS REPORT CONTAINS FINDINGS THAT MAY BE CRITICAL TO PATIENT CARE. The findings were verbally communicated via telephone conference with ENOC KIM at 1:54 PM COMPUTER SYSTEMS SOFTWARE ARCHITECT on 03/26/2023. The findings were acknowledged and understood. Chest X-Ray 03/26/23 17:04 IMPRESSION: No acute plain radiographic abnormality or interval change from prior imaging. Chronic residual pleural-parenchymal scarring in the left costophrenic angle. Laboratory Results WBC 6.74 10^3/uL (3.29-11.43) 03/29/23 05:24 RBC 4.42 10^6/uL (3.85-5.65) 03/29/23 05:24 Hgb 14.30 g/dL (11.27-16.99) 03/29/23 05:24 Hct 41.2 % (36-47) 03/29/23 05:24 MCV 93.2 fl (85-98) 03/29/23 05:24 MCH 32.4 pg (27-33) 03/29/23 05:24 MCHC 34.7 g/dL (30-55) 03/29/23 05:24 RDW 11.9 % (12.1-15.1) L 03/29/23 05:24 Plt Count 215 10^3/cmm (157-399) 03/29/23 05:24 MPV 10.4 fL (7.4-10.4) 03/29/23 05:24 Neut % (Auto) 74.8 % 03/29/23 05:24 Lymph % (Auto) 15.0 % 03/29/23 05:24 [place] % (Auto) 8.5 % 03/29/23 05:24 Eos % (Auto) 0.9 % 03/29/23 05:24 Baso % (Auto) 0.4 % 03/29/23 05:24 Neut # (Auto) 5.04 10^3/uL (1.8-7.7) 03/29/23 05:24 Lymph # (Auto) 1.0 10^3/uL (0.8-4.8) 03/29/23 05:24 [place] # (Auto) 0.6 10^3/uL (0.2-0.9) 03/29/23 05:24 Eos # (Auto) 0.1 10^3/uL (0.0-0.8) 03/29/23 05:24 Baso # (Auto) 0.0 10^3/uL (0.0-0.1) 03/29/23 05:24 Nucleated RBC % (auto) 0 % 03/29/23 05:24 Nucleated RBCs # 0.0 /100WBC 03/29/23 05:24 Sodium 134 mmol/L (136-145) L 03/29/23 05:24 Potassium 3.2 mmol/L (3.5-5.1) L 03/29/23 05:24 Chloride 102 mmol/L (98-107) 03/29/23 05:24 Carbon Dioxide 20 mmol/L (22-29) L 03/29/23 05:24 Anion Gap 15.2 (5-19) 03/29/23 05:24 BUN 14 mg/dL (8-23) 03/29/23 05:24 Creatinine 0.5 mg/dL (0.5-0.9) 03/29/23 05:24 GFR Calculation 124.2 mL/min (90-130) 03/29/23 05:24 Glucose 326 mg/dL (65-115) H 03/29/23 05:24 POC Glucose 372 mg/dL (70-110) H 03/30/23 10:56 Estimat Average Glucose 289 03/29/23 05:24 Hemoglobin A1c 11.7 % (4.0-6.0) H 03/29/23 05:24 Calculated Osmolality 291 mOsm/kg (285-295) 03/29/23 05:24 Lactic Acid 2.9 mmol/L (0.5-2.2) H 03/26/23 12:44 Lactic Acid (Sepsis) 2.9 mmol/L (0.5-2.2) H 03/26/23 19:25 Calcium 8.6 mg/dL (8.5-10.5) 03/29/23 05:24 Phosphorus 3.5 mg/dL (2.5-4.5) 03/30/23 05:54 Magnesium 1.9 mg/dL (1.7-2.3) 03/30/23 05:54 Total Bilirubin 0.7 mg/dL (0.15-1.2) 03/29/23 05:24 GGT 94 U/L (5-36) H 03/28/23 04:50 AST 75 U/L (0-32) H 03/29/23 05:24 ALT 53 U/L (0-33) H 03/29/23 05:24 Alkaline Phosphatase 79 U/L (35-105) 03/29/23 05:24 Lactate Dehydrogenase 317 U/L (135-214) H 03/28/23 04:50 Troponin T Baseline 16 ng/L (0-10) H 03/26/23 12:44 Troponin T 120 Minute 15.93 ng/L (0-10) H 03/26/23 14:51 Delta Troponin T -0.07 ABS# (0-10) L 03/26/23 14:51 Troponin T Hi Sens 6Hr 20.49 ng/L (0-10) H 03/26/23 19:25 Troponin T Hi Sens 6Hr Delta 4.49 ng/L (0-12) 03/26/23 19:25 NT-Pro-B Natriuret Pep 566 pg/mL (0-125) H 03/26/23 12:44 Total Protein 5.8 g/dL (6.6-8.7) L 03/29/23 05:24 Albumin 3.1 g/dL (3.5-5.2) L 03/29/23 05:24 Globulin 2.7 g/dL (1.3-4.6) 03/29/23 05:24 Vitamin B12 491 pg/mL (232-1245) 03/28/23 04:50 Folate 18.1 ng/mL (4.8-37.3) 03/29/23 05:24 Procalcitonin 0.13 ng/mL (0-0.5) 03/26/23 12:44 TSH 2.06 uIU/mL (0.27-4.20) 03/28/23 04:50 Urine Color Yellow (Yellow) 03/26/23 12:58 Urine Appearance Cloudy (CLEAR) A 03/26/23 12:58 Urine pH 7 (5-7) 03/26/23 12:58 Ur Specific Kenn[place] 1.015 (1.005-1.030) 03/26/23 12:58 Urine Protein Trace (Negative) 03/26/23 12:58 Urine Glucose (UA) 4+ (Normal) H 03/26/23 12:58 Urine Ketones 1+ (Negative) H 03/26/23 12:58 Urine Blood 2+ (Negative) H 03/26/23 12:58 Urine Nitrate Negative (Negative) 03/26/23 12:58 Urine Bilirubin Neg (Negative) 03/26/23 12:58 Urine Urobilinogen 4 mg/dL (Negative) H 03/26/23 12:58 Ur Leukocyte Esterase Trace (Negative) H 03/26/23 12:58 Urine RBC 5-10 /hpf (0-2) H 03/26/23 12:58 Urine WBC 15-25 /hpf (0-5) H 03/26/23 12:58 Ur Squamous Epith Cells 0-4 /hpf (0-5) H 03/26/23 12:58 Amorphous Sediment Not Reportable 03/26/23 12:58 Urine Bacteria 4+ /hpf (NONE) H 03/26/23 12:58 Adenovirus (PCR) Not detected (NOT DETECT) 03/26/23 16:15 C. pneumoniae DNA (PCR) Not detected (NOT DETECT) 03/26/23 16:15 Coronavirus 229E (PCR) Not detected (NOT DETECT) 03/26/23 16:15 Human Metapneumovir PCR Not detected (NOT DETECT) 03/26/23 16:15 Influenza A (H1) PCR Not detected (NOT DETECT) 03/26/23 16:15 Influ A (H1/09) PCR Not detected (NOT DETECT) 03/26/23 16:15 Influenza A (H3) PCR Not detected (NOT DETECT) 03/26/23 16:15 Influenza Type A (PCR) Not detected (NOT DETECT) 03/26/23 16:15 Influenza Type B (PCR) Not detected (NOT DETECT) 03/26/23 16:15 M. pneumoniae (PCR) Not detected (NOT DETECT) 03/26/23 16:15 Parainfluenza 1 (PCR) Not detected (NOT DETECT) 03/26/23 16:15 Parainfluenza 2 (PCR) Not detected (NOT DETECT) 03/26/23 16:15 Parainfluenza 3 (PCR) Not detected (NOT DETECT) 03/26/23 16:15 Parainfluenza 4 (PCR) Not detected (NOT DETECT) 03/26/23 16:15 RSV Type A (PCR) Not detected (NOT DETECT) 03/26/23 16:15 RSV Type B (PCR) Not detected (NOT DETECT) 03/26/23 16:15 Entero/Rhino (PCR) Not detected (NOT DETECT) 03/26/23 16:15 SARS-CoV-2 (PCR) Not detected (NOT DETECT) 03/26/23 16:15 Vitals Last Vital Signs Temp 98.4 F 03/30/23 11:48 Pulse 74 03/30/23 11:48 Resp 18 03/30/23 11:48 BP 148/79 03/30/23 11:48 Pulse Ox 95 03/30/23 11:48 O2 Del Method Room Air 03/30/23 11:48 Discharge Plan Discharge Patient Disposition: Hospice - Medical Facility Condition: Stable Prescriptions: New (DME) lancets Misc See Rx Instructions .ROUTE .MEDSUPPLY Qty: 100 0RF Rx Instructions: As directed (DME) blood-glucose meter [Blood Glucose Monitoring] Kit See Rx Instructions .ROUTE .MEDSUPPLY Qty: 1 0RF Rx Instructions: As directed (DME) pen needle, diabetic [BD Ultra-Fine Micro Pen Needle] 32 gauge x 1/4 needle See Rx Instructions .ROUTE .MEDSUPPLY Qty: 50 0RF Rx Instructions: As directed insulin lispro [Humalog KwikPen Insulin] 100 unit/mL insulin pen See Protocol SUBCUT TID Qty: 15 0RF Protocol: Insulin Corrective High-Dose Regimen Condition: Fingerstick Blood Glucose Dose/Route: Insulin Units Condition: 141-180 mg/dl Dose/Route: 6 units/SQ Condition: 181-220 mg/dl Dose/Route: 8 units/SQ Condition: 221-260 mg/dl Dose/Route: 10 units/SQ Condition: 261-300 mg/dl Dose/Route: 12 units/SQ Condition: 301-350 mg/dl Dose/Route: 14 units/SQ Condition: 351-400 mg/dl Dose/Route: 16 units/SQ Condition: greater than 400 mg/dl Dose/Route: 18 units/SQ lisinopril 10 mg Tablet 10 mg PO DAILY Qty: 30 0RF insulin glargine [Lantus Solostar U-100 Insulin] 100 unit/mL (3 mL) insulin pen 10 unit SUBCUT BID Qty: 15 0RF Continued prednisone 10 mg tablet See Rx Instructions PO .COMPLEX PRN (Reason: joint pain) Qty: 30 1RF Rx Instructions: take 1 or 2 tabs daily for 3-7 days prn joint pain flare PO PRN; Changed levetiracetam 500 mg tablet 1,000 mg PO BID 30 Days Qty: 120 0RF Discontinued lisinopril-hydrochlorothiazide 10-12.5 mg tablet 1 tab PO DAILY Xeljanz XR 11 mg tablet extended release 24 hr 11 mg PO DAILY Qty: 90 1RF ibuprofen 600 mg tablet 600 mg PO BID PRN (Reason: Pain) Discharge Orders: Discharge Order (Routine); Ordered 03/30/23 Ordered By: Mack Hallman Referrals: [facility], [place] [Outside] Donal Laughlin MD [Primary Care Provider] - 7-10 days Discharge Diet: Diabetic Discharge Activity: Resume usual activity and Increase activity as tolerated Patient Instructions: Altered Mental Status (ED), Opioid Safety Activity Restrictions/Additional Instructions: Hospice care Insulin as per sliding scale. Dose of Keppra has been increased to 1000 mg twice daily. Discharge Attestations Time Spent in Discharge Care*: greater than 30 min Specific Discharge Activities: educating patient, educating and/or supporting family/caregiver, discussing with pcp/other providers, discussing with employment evaluator/case manager/social workers/dc planners, documenting/other paperwork and evaluating patient/reviewing data Status at Discharge: Cognitive status at discharge: mildly impaired cognition , Behavioral status at discharge: cooperative , Functional status at discharge: uses cane/walker , Overall status at discharge: patient has a new baseline Quality Metrics Clinical Quality Measures [ No reported AMI, CVA or VTE this stay] Coding Level of Care Code 51277 Total time (in minutes) for Discharge: 60 Diagnoses Encephalopathy acute G93.40 Cerebrovascular accident of right pontine structure I63.50 Immunodeficiency secondary to chemotherapy Z79.899 Seropositive rheumatoid arthritis of multiple joints M05.79 Goals of care, counseling/discussion Z71.89 Seizure disorder G40.909 Urinary tract infection N30.01 Hematuria presence: with hematuria Urinary tract infection type: acute cystitis Brain mass G93.89 Skull lesion M89.9
--- NOTE | 2023-03-30 12:59 | PC.SOCIAL ---
IMM Update pg 2 of IMM updated and reviewed w patient. Copy provided and copy dated and initialed and placed in chart.
[2023-03-30] MEDS: cefTRIAXone 1,000 MG in sodium chloride 0.9% (plus) 50 ML 100 MG IV (15:11)
[2023-03-30 15:27] VITALS: BP 132/78; PULSE 86; RESP 17; O2SAT 93
[2023-03-30 15:48] VITALS: BP 132/78; PULSE 86; RESP 17; O2SAT 93
--- NOTE | 2023-03-30 16:12 | PC.NURSE ---
report called to Gi @ [facility] – [place]
== END 2023-03-30 16:50 | disposition hospice, home (50) | DRG 101 ==
LOC: ER 14:58 → ICU 16:30 → MEDSURG 03-28 00:11
PROVIDERS: Admitting Provider Internal Medicine; Emergency Provider Internal Medicine; PCP Family Medicine; Visit Provider Student in an Organized Health Care Education/Training Program
DX: G40.909 Epilepsy, unspecified, not intractable, without status epilepticus (principal); N30.01 Acute cystitis with hematuria; D84.821 Immunodeficiency due to drugs; G93.40 Encephalopathy, unspecified; M05.9 Rheumatoid arthritis with rheumatoid factor, unspecified; K52.9 Noninfective gastroenteritis and colitis, unspecified; G93.9 Disorder of brain, unspecified; M89.9 Disorder of bone, unspecified; E87.6 Hypokalemia; E11.9 Type 2 diabetes mellitus without complications; Z66 Do not resuscitate; Z79.622 Long term (current) use of Janus kinase inhibitor; Z92.3 Personal history of irradiation; Z11.52 Encounter for screening for COVID-19
CPT/HCPCS: 36415; 36416; 51702; 70450; 71045; 80053; 81001; 82607; 82746; 82962; 82977; 83036; 83605; 83615; 83735; 83880; 84100; 84145; 84443; 84484; 85025; 87040; 87077; 87086; 87186; 87486; 87581; 87633; 92507; 92523; 92526; 92610; 93005; 96365; 96372; 96375; 96376; 97161; 97530; 99285; C9113; J0696; J1815; J1953; J3475; J7030